=== PATIENT | male | born 1960 | race Two or more races ===

== ENCOUNTER 2021-06-08 01:10 | Inpatient (IN) | payer MEDICAID ==
[~2021-06-08] VITALS: Ht 167.6 cm; Wt 55.8 kg
[2021-06-08 02:34] LABS: BASOPHILS # (AUTO) 0.1 K/uL (0.0-0.2); BASOPHILS % (AUTO) 0.7 % (0.0-2.0); EOSINOPHILS % (AUTO) 3.1 % (0.0-6.0); HEMATOCRIT 27 % (39-51); HEMOGLOBIN 8.9 g/dL (13.5-17.5); LYMPHOCYTES # (AUTO) 1.4 K/uL (0.8-4.8); LYMPHOCYTES % (AUTO) 18.1 % (20.0-44.0); MEAN CORPUSCULAR HGB CONC 33 g/dl (31.0-36.0); MEAN CORPUSCULAR VOLUME 91 fL (80-96); MONOCYTES % (AUTO) 12.6 % (2.0-12.0); NEUTROPHILS % (AUTO) 65.5 % (43.0-81.0); PLATELET COUNT (AUTO) 127 K/uL (150-450); RED BLOOD CELL COUNT(AUTO) 2.95 MIL/uL (4.5-6.0); WHITE BLOOD COUNT (AUTO) 7.6 K/uL (4.3-11.0)
[2021-06-08 02:54] LABS: CALCIUM, SERUM 8.1 mg/dL (8.5-10.1); CREATININE 6.8 mg/dL (0.6-1.3)
[2021-06-08] MEDS ORDERED: CEFTRIAXONE 1GM BAG (ER ONLY) 50 ML IV ONE (03:50)
[2021-06-08] MEDS ORDERED: AZITHROMYCIN 500 MG VIAL ONE (03:50)
[2021-06-08] MEDS ORDERED: AZITHROMYCIN 500 MG in IV D5W 250 ML IV ONE (04:00)
[2021-06-08] MEDS ORDERED: CEFTRIAXONE 1 G in IV D5W 50 ML IV ONE (04:00)
[2021-06-08] MEDS ORDERED: HYDR100T27 PO (06:31)
[2021-06-08] MEDS ORDERED: ACET325T53 PO (06:31)
[2021-06-08] MEDS ORDERED: SITA25TA PO (06:31)
[2021-06-08] MEDS ORDERED: PANT40TA2 PO (06:31)
[2021-06-08] MEDS ORDERED: HYDR-4303 PO (06:31)
[2021-06-08] MEDS ORDERED: CLOP75TA15 PO (06:31)
[2021-06-08] MEDS ORDERED: ATOR80TA PO (06:31)
[2021-06-08] MEDS ORDERED: ALEN70TA80 PO (06:31)
[2021-06-08] MEDS ORDERED: GABA-532 PO (06:31)
[2021-06-08] MEDS ORDERED: ALPR1TAB7 PO (06:31)
[2021-06-08] MEDS ORDERED: ONDA4TAB5 PO (06:31)
[2021-06-08] MEDS ORDERED: NIFE-34 PO (06:31)
[2021-06-08] MEDS ORDERED: CLON0.1T PO (06:31)
[2021-06-08] MEDS ORDERED: FURO-145 PO (06:31)
[2021-06-08] MEDS ORDERED: INSU100V39 SQ (06:31)
[2021-06-08] MEDS ORDERED: METO25TA6 PO (06:31)
[2021-06-08] MEDS ORDERED: ASPI-1420 PO (06:31)
[2021-06-08] MEDS ORDERED: ACETAMINOPHEN 325 MG TABLET PO PRN (11:30)
[2021-06-08] MEDS ORDERED: HYDROCODONE/APAP 5/325MG TABLET PO PRN (11:30)
[2021-06-08] MEDS ORDERED: ALPRAZOLAM 1 MG TABLET PO PRN (11:30)
[2021-06-08] MEDS ORDERED: ONDANSETRON 4 MG TAB.RAPDIS PO PRN (12:00)
[2021-06-08] MEDS ORDERED: *INSULIN REGULAR(HUMULIN R)HUM 100 UNIT/ML VIAL SQ PRN (12:30)
[2021-06-08] MEDS ORDERED: DEXTROSE 50%-WATER 50 ML DISP.SYRIN IV PRN (12:30)
[2021-06-08] MEDS ORDERED: INSULIN REGULAR, HUMAN 100 UNIT/ML 3 ML VIAL SQ PRN (12:30)
[2021-06-08] MEDS: PIPERACILLIN /TAZOBACTAM 2.25 G in IV D5W 50 ML IV SCH ×2 (13:00→20:20)
[2021-06-08] MEDS: hydrALAZINE HCL 50 MG TABLET PO SCH ×2 (13:11→16:41)
[2021-06-08] MEDS: CLONIDINE HCL 0.1 MG TABLET PO SCH ×2 (13:12→21:28)
[2021-06-08] MEDS: GABAPENTIN 100 MG CAPSULE PO SCH ×2 (13:13→16:41)
[2021-06-08] MEDS: VANCOMYCIN 1 GM in IV D5W 250 ML IV ONE (14:00)
[2021-06-08] MEDS: METOPROLOL TARTRATE 25 MG TABLET PO SCH (16:41)
[2021-06-08] MEDS: BLOOD SUGAR DIAGNOSTIC 1 EACH STRIP VI SCH ×2 (16:41→21:29)
[2021-06-08] MEDS: NIFEdipine XL (30MG) 30 MG TAB PO SCH (16:41)
[2021-06-08 20:00] VITALS: BP 158/93
[2021-06-08] MEDS: ATORVASTATIN 40 MG TABLET PO SCH (21:28)
[2021-06-09] MEDS: PIPERACILLIN /TAZOBACTAM 2.25 G in IV D5W 50 ML IV SCH ×3 (04:36→20:35)
[2021-06-09 05:00] VITALS: BP 161/78
[2021-06-09] MEDS: CLONIDINE HCL 0.1 MG TABLET PO SCH ×3 (05:26→20:39)
[2021-06-09 05:56] LABS: BASOPHILS % (AUTO) 0.5 % (0.0-2.0); HEMATOCRIT 30 % (39-51); HEMOGLOBIN 9.7 g/dL (13.5-17.5); LYMPHOCYTES # (AUTO) 1.2 K/uL (0.8-4.8); MEAN CORPUSCULAR HGB CONC 33 g/dl (31.0-36.0); MEAN CORPUSCULAR VOLUME 91 fL (80-96); MONOCYTES # (AUTO) 0.7 K/uL (0.1-1.30); MONOCYTES % (AUTO) 7.2 % (2.0-12.0); NEUTROPHILS # (AUTO) 7.4 K/uL (1.8-8.9); NEUTROPHILS % (AUTO) 78.3 % (43.0-81.0); PLATELET COUNT (AUTO) 166 K/uL (150-450); RED BLOOD CELL COUNT(AUTO) 3.29 MIL/uL (4.5-6.0); WHITE BLOOD COUNT (AUTO) 9.4 K/uL (4.3-11.0)
[2021-06-09] MEDS ORDERED: VANCOMYCIN 500 MG in IV D5W 100 ML IV PRN (06:00)
[2021-06-09 07:06] LABS: CALCIUM, SERUM 8.4 mg/dL (8.5-10.1)
[2021-06-09] MEDS: BLOOD SUGAR DIAGNOSTIC 1 EACH STRIP VI SCH ×4 (07:30→21:18)
[2021-06-09 07:41] LABS: POTASSIUM 6.2 mmol/L (3.5-5.1)
[2021-06-09 07:42] LABS: CREATININE 8.5 mg/dL (0.6-1.3)
[2021-06-09 08:00] VITALS: BP 168/83
[2021-06-09] MEDS: PANTOPRAZOLE 40 MG TABLET.DR PO SCH (10:48)
[2021-06-09] MEDS: CLOPIDOGREL BISULFATE 75 MG TABLET PO SCH (10:48)
[2021-06-09] MEDS: FUROSEMIDE 20 MG TABLET PO SCH (10:48)
[2021-06-09] MEDS: ASPIRIN EC 81 MG TABLET.DR PO SCH (10:49)
[2021-06-09] MEDS: AZITHROMYCIN 250 MG TABLET PO SCH (10:49)
[2021-06-09] MEDS: LINAGLIPTIN 5 MG TABLET PO SCH (10:49)
[2021-06-09] MEDS: METOPROLOL TARTRATE 25 MG TABLET PO SCH ×2 (10:50→17:38)
[2021-06-09] MEDS: hydrALAZINE HCL 50 MG TABLET PO SCH ×3 (10:50→17:37)
[2021-06-09] MEDS: NIFEdipine XL (30MG) 30 MG TAB PO SCH ×2 (10:51→17:37)
[2021-06-09] MEDS: GABAPENTIN 100 MG CAPSULE PO SCH ×3 (10:53→17:37)
[2021-06-09] MEDS: GUAIFENESIN LA 600 MG TABLET.SA PO SCH ×2 (10:53→20:39)
[2021-06-09 16:00] VITALS: BP 153/79
[2021-06-09 20:00] VITALS: BP 140/69
[2021-06-09] MEDS: ATORVASTATIN 40 MG TABLET PO SCH (21:17)
[2021-06-10] MEDS: CLONIDINE HCL 0.1 MG TABLET PO SCH ×2 (05:00→12:52)
[2021-06-10] MEDS: PIPERACILLIN /TAZOBACTAM 2.25 G in IV D5W 50 ML IV SCH ×2 (05:52→14:43)
[2021-06-10] MEDS ORDERED: VANCOMYCIN 500 MG in IV D5W 100 ML IV PRN (06:00)
[2021-06-10] MEDS: BLOOD SUGAR DIAGNOSTIC 1 EACH STRIP VI SCH ×3 (07:21→17:15)
[2021-06-10 08:00] VITALS: BP 146/77
[2021-06-10 08:29] LABS: BASOPHILS # (AUTO) 0.1 K/uL (0.0-0.2); EOSINOPHILS % (AUTO) 6.6 % (0.0-6.0); HEMATOCRIT 26 % (39-51); HEMOGLOBIN 8.7 g/dL (13.5-17.5); LYMPHOCYTES % (AUTO) 14.1 % (20.0-44.0); MEAN CORPUSCULAR HGB CONC 34 g/dl (31.0-36.0); MEAN CORPUSCULAR VOLUME 90 fL (80-96); MONOCYTES # (AUTO) 0.6 K/uL (0.1-1.30); MONOCYTES % (AUTO) 8.1 % (2.0-12.0); NEUTROPHILS # (AUTO) 5.2 K/uL (1.8-8.9); NEUTROPHILS % (AUTO) 70.2 % (43.0-81.0); PLATELET COUNT (AUTO) 184 K/uL (150-450); RED BLOOD CELL COUNT(AUTO) 2.85 MIL/uL (4.5-6.0); WHITE BLOOD COUNT (AUTO) 7.4 K/uL (4.3-11.0)
[2021-06-10 09:19] LABS: CALCIUM, SERUM 8.1 mg/dL (8.5-10.1); POTASSIUM 6.1 mmol/L (3.5-5.1)
[2021-06-10 09:27] LABS: CREATININE 10.3 mg/dL (0.6-1.3)
[2021-06-10] MEDS: PANTOPRAZOLE 40 MG TABLET.DR PO SCH (09:27)
[2021-06-10] MEDS: AZITHROMYCIN 250 MG TABLET PO SCH (09:28)
[2021-06-10] MEDS: ASPIRIN EC 81 MG TABLET.DR PO SCH (09:28)
[2021-06-10] MEDS: GABAPENTIN 100 MG CAPSULE PO SCH ×3 (09:28→17:05)
[2021-06-10] MEDS: CLOPIDOGREL BISULFATE 75 MG TABLET PO SCH (09:29)
[2021-06-10] MEDS: METOPROLOL TARTRATE 25 MG TABLET PO SCH ×2 (09:29→17:04)
[2021-06-10] MEDS: LINAGLIPTIN 5 MG TABLET PO SCH (09:29)
[2021-06-10] MEDS: FUROSEMIDE 20 MG TABLET PO SCH (09:29)
[2021-06-10] MEDS: NIFEdipine XL (30MG) 30 MG TAB PO SCH ×2 (09:30→17:04)
[2021-06-10] MEDS: hydrALAZINE HCL 50 MG TABLET PO SCH ×3 (09:30→17:05)
[2021-06-10] MEDS: GUAIFENESIN LA 600 MG TABLET.SA PO SCH (09:31)
[2021-06-10] MEDS ORDERED: DOXY-326 PO (11:40)
[2021-06-10] MEDS ORDERED: GUAI600T53 PO (11:40)
[2021-06-10] MEDS ORDERED: EPOETIN ALFA (4000 UNIT) 4,000 UNIT/ML VIAL IV SCH (15:00)
[2021-06-10 16:00] VITALS: BP 151/80
[2021-06-10] MEDS ORDERED: VANCOMYCIN 1 GM in IV D5W 250 ML IV ONE (16:00)
[2021-06-10 17:05] VITALS: BP 151/80
== END 2021-06-10 18:20 | DRG 133 ==
LOC: ER 01:15 → TRANSITION 06:32 → MEDSG2 09:02
PROVIDERS: ADMIT Internal Medicine; ATTEND Internal Medicine
PROC: 5A1D70Z Performance of Urinary Filtration, Intermittent, Less than 6 Hours Per Day (ICD-10-PCS; principal; 2021-06-09)
DX: J96.00 Acute respiratory failure, unspecified whether with hypoxia or hypercapnia (principal); J15.9 Unspecified bacterial pneumonia; I12.0 Hypertensive chronic kidney disease with stage 5 chronic kidney disease or end stage renal disease; N18.6 End stage renal disease; D63.1 Anemia in chronic kidney disease; E11.22 Type 2 diabetes mellitus with diabetic chronic kidney disease; Z99.2 Dependence on renal dialysis; E78.5 Hyperlipidemia, unspecified; M89.9 Disorder of bone, unspecified
CPT/HCPCS: 36415; 71045-TC; 71250-TC; 80048-TC; 80202-TC; 82962-TC; 84484-TC; 85025-TC; 87081-TC; 90935-TC; G0378; J0456; J0696; J1815; J2543; J3370; J7050; J7060; U0003

== ENCOUNTER 2022-05-03 13:40 | Inpatient (IN) | payer MEDICAID ==
[~2022-05-03] VITALS: Ht 165.1 cm; Wt 58.1 kg
[~2022-05-03 13:40] MED LIST: ACET325T53 PO; ALEN70TA80 PO; ALPR1TAB7 PO; ASPI-1420 PO; ATOR80TA PO; CLON0.1T PO; CLOP75TA15 PO; DOXY-326 PO; FURO-145 PO; GABA-532 PO; GUAI600T53 PO; HYDR-4303 PO; HYDR100T27 PO; INSU100V39 SQ; METO25TA6 PO; NIFE-34 PO; ONDA4TAB5 PO; PANT40TA2 PO; SITA25TA PO
--- NOTE | 2022-05-03 13:40 | NUR ---
ALLAN RIVERA90 FROM [facility], STAFFED CALLED FOR ALTERED MENTAL STATUS, NAUSEA, AND VOMITING. PT MISSED HIS DIALYSIS YESTERDAY. ATTACHED TO MONITOR, SATTING AT 92% ON ROOM A IR A DESATTING WHILE FALING ASLEEP, 2L NASAL CANNULA PLACED. AWAITING MD ORDERS.
[2022-05-03 14:59] LABS: BASOPHILS % (AUTO) 0.7 % (0.0-2.0); HEMATOCRIT 41 % (39-51); HEMOGLOBIN 13.2 g/dL (13.5-17.5); LYMPHOCYTES # (AUTO) 1.2 K/uL (0.8-4.8); LYMPHOCYTES % (AUTO) 16.4 % (20.0-44.0); MEAN CORPUSCULAR HGB CONC 32 g/dl (31.0-36.0); MEAN CORPUSCULAR VOLUME 94 fL (80-96); MONOCYTES # (AUTO) 0.8 K/uL (0.1-1.30); MONOCYTES % (AUTO) 11.5 % (2.0-12.0); NEUTROPHILS # (AUTO) 4.4 K/uL (1.8-8.9); NEUTROPHILS % (AUTO) 62.4 % (43.0-81.0); PLATELET COUNT (AUTO) 218 K/uL (150-450); RED BLOOD CELL COUNT(AUTO) 4.34 MIL/uL (4.5-6.0); WHITE BLOOD COUNT (AUTO) 7.1 K/uL (4.3-11.0)
[2022-05-03 15:10] LABS: CALCIUM, SERUM 9.3 mg/dL (8.5-10.1); CARBON DIOXIDE 20 mmol/L (21-32); CHLORIDE 95 mmol/L (98-107); GLUCOSE 141 mg/dL (74-106); POTASSIUM 5.9 mmol/L (3.5-5.1); SODIUM SERUM 132 mmol/L (136-145)
[2022-05-03 15:16] LABS: CREATININE 10.9 mg/dL (0.6-1.3); UREA NITROGEN, BLOOD 118 mg/dL (7-18)
[2022-05-03 15:17] LABS: ALANINE AMINOTRANSFERASE 24 U/L (12-78); ALBUMIN 2.9 g/dL (3.4-5.0); ALCOHOL, BLOOD < 3 mg/dL (0-0); ALKALINE PHOSPHATASE 158 U/L (46-116); ASPARTATE AMINOTRANSFERASE 14 U/L (15-37); BILIRUBIN,DIRECT 0.1 mg/dL (0.0-0.2); BILIRUBIN,TOTAL 0.3 mg/dL (0.2-1.0); TOTAL PROTEIN, SERUM 7.4 g/dL (6.4-8.2)
[2022-05-03 15:50] LABS: LIPASE 348 U/L (73-393)
--- NOTE | 2022-05-03 15:53 | NUR ---
COVID TEST COLLECTED AND SENT
[2022-05-03] MEDS ORDERED: CALCIUM CHLORIDE 1,000 MG/10 ML DISP.SYRIN IV ONE (16:00)
[2022-05-03] MEDS ORDERED: INSULIN REGULAR, HUMAN 100 UNIT/ML 10 ML VIAL IV ONE (16:00)
[2022-05-03] MEDS ORDERED: DEXTROSE 50%-WATER 50 ML DISP.SYRIN IV ONE (16:00)
--- NOTE | 2022-05-03 16:00 | NUR ---
MOVE SHEET SUBMITTED
[2022-05-03] MEDS ORDERED: DEXTROSE 50%-WATER 50 ML DISP.SYRIN ONE (16:01)
[2022-05-03] MEDS ORDERED: CALCIUM CHLORIDE 1,000 MG/10 ML DISP.SYRIN ONE (16:01)
--- NOTE | 2022-05-03 16:16 | NUR ---
URINE COLLECTED AND SENT
[2022-05-03 16:53] LABS: BILIRUBIN,URINE NEGATIVE (NEGATIVE); COLOR,URINE YELLOW (YELLOW); LEUKOCYTE ESTERASE ,URINE NEGATIVE (NEGATIVE); NITRITE, URINE NEGATIVE (NEGATIVE); PH,URINE 7.5 (5.0-8.0); PROTEIN,URINE 2+ mg/dl (NEGATIVE); UGLUCOSE TRACE mg/dL (NEGATIVE); UROBILINOGEN,URINE 0.2 EU/dL (0.2)
--- NOTE | 2022-05-03 17:30 | NUR ---
Nicole jones in EDM - 05/03/22 at [address] MARKHAM AT BEDSIDE FOR CONSCIOUS SEDATION 60MG OF PROPOFOL GIVEN, SHOULDER POPPED BACK IN AT 1731, X RAY WAS CALLED. PT BECASE A&OX4 AT 1736.
[2022-05-03 18:06] LABS: BACTERIA,URINE None seen /HPF (None Seen); SQUAMOUS EPITHELIAL CELL,UR 0-2 /HPF (None Seen); WBC,URINE 0-2 /HPF (0-3)
--- NOTE | 2022-05-03 19:40 | NUR ---
CALLED CHANTELLE LA SISTER DPTON RECIEVED VERBAL CONSENT FOR DIALYSIS WITH 2 RN's; VERBALIZED UNDERSTANDING
--- NOTE | 2022-05-03 19:42 | NUR ---
HD RN AT PT'S BEDSIDE
--- NOTE | 2022-05-03 19:55 | NUR ---
RCW HD CATHETER PATENT AND INTACT.
--- NOTE | 2022-05-03 22:59 | NUR ---
HD COMPLETED BY SHEET METAL WORKER LINO. OUTPUT 2L. VSS. PT TOLERATED HD WELL. BP 135/ 72 HR 67 RR 20 TEMP 98.0 SATTING 97% ON 2LPM N/C. RR EVEN NONLABORED HD TO RCW; PATENT AND INTACT. NO ACTIVE BLEEDING
[2022-05-04] VITALS (44 sets, daily range): BP systolic 91–220; BP diastolic 50–125
--- NOTE | 2022-05-04 01:17 | NUR ---
BUSINESS REPRESENTATIVE NOTE RECEIVED REPORT FROM ER, SAMARA CASAS. PATIENT IS ON 3 LPM VIA NC, O2 SAT IS 97%. LAST VITAL SIGNS WERE TAKEN THE FOLLOWING: BP 135/72, HR 59 RR 16. IV ACCESS IS ON R FA, #20 G. PATIENT FINISHED HEMO DIALYSIS, AND OUTPUT IS 2000 ML.
--- NOTE | 2022-05-04 01:18 | NUR ---
REPORT GIVEN TO 3W RN FOR LISA
--- NOTE | 2022-05-04 02:00 | NUR ---
CRATE BUILDER NOTE PATIENT ARRIVED IN THE UNIT IN A GURNEY. PATIENT IS ALERT, A O X 1. PATIENT IS CONFUSED AND YELL OUT ALOUD CONSTANTLY. HE IS ON 4 LPM OXYGEN, AND THE O2 SAT IS 97%. IV ACCESS IS AT R FA, #20G, SL. UPON ARRIVING, VITAL SIGNS WERE TAKEN AND BEING DOCUMENTED IN THE COMPUTER SYSTEM BY DUNG RO. PATIENT HAS ELEVATED TEMPERATURE OF 99.7, REMOVED THE BLANKET AND PUT 3 PACK OF ICE PACK ON THE PATIENT, ONE IS UNDER HIS RIGHT AXILLARY, ONE IS UNDER HIS LEFT AXILLARY, AND ANOTHER ONE IS ON THE CHEST. PATIENT HAS SOME SKIN ISSUES, PICTURES WERE TAKEN AND PUT IN THE MEDICAL CHART. IV ACCESS IS PATENT AND INTACT. IJ PERMCATH IS AT HIS RIGHT CHEST. SAFETY MEASURE IN PLACED: BED IN LOWEST POSITION AND LOCKED; CALL ROSS IN REACH; BED ALARM IS SET. WILL CONTINUE MONITORING PATIENT'S CONDITION AND PROVIDE THE CARE HE NEEDS.
--- NOTE | 2022-05-04 02:07 | NUR ---
PT TRANSFERRED TO 308-1 VIA ACLS PROTOCOL. VSS. PT TOLERATED TRANSFER WELL.
[2022-05-04] MEDS ORDERED: INSULIN REGULAR, HUMAN 100 UNIT/ML 3 ML VIAL SQ PRN (03:00)
[2022-05-04] MEDS ORDERED: DEXTROSE 50%-WATER 50 ML DISP.SYRIN IV PRN ×2 (03:00→12:30)
[2022-05-04 06:01] LABS: BASOPHILS % (AUTO) 0.2 % (0.0-2.0); HEMATOCRIT 39 % (39-51); HEMOGLOBIN 12.6 g/dL (13.5-17.5); LYMPHOCYTES # (AUTO) 0.2 K/uL (0.8-4.8); MEAN CORPUSCULAR HGB CONC 33 g/dl (31.0-36.0); MEAN CORPUSCULAR VOLUME 93 fL (80-96); MONOCYTES # (AUTO) 0.7 K/uL (0.1-1.30); MONOCYTES % (AUTO) 6.6 % (2.0-12.0); NEUTROPHILS # (AUTO) 10.2 K/uL (1.8-8.9); NEUTROPHILS % (AUTO) 91.2 % (43.0-81.0); PLATELET COUNT (AUTO) 202 K/uL (150-450); RED BLOOD CELL COUNT(AUTO) 4.19 MIL/uL (4.5-6.0); WHITE BLOOD COUNT (AUTO) 11.1 K/uL (4.3-11.0)
[2022-05-04 06:36] LABS: CALCIUM, SERUM 9.1 mg/dL (8.5-10.1); POTASSIUM 5.1 mmol/L (3.5-5.1)
--- NOTE | 2022-05-04 07:00 | NUR ---
HOUSEKEEPING DIRECTOR OPENING NOTES RECEIVED PATIENT AWAKE IN BED. A/Ox1, EPISODES OF CONFUSION. ON 4L OF O2 VIA NC. NO S/S OF RESPIRATORY DISTRESS. ON TELE MONITORING SHOWING SR HR 90. NO COMPLAINT OF CHEST PAIN OR DISCOMFORT. IV ACCESS R FA #20 SL. INTACT AND PATENT. PATIENT HAS RCW CATH, DRESSING IN PLACE. PATIENT INCONTINENT. SKIN ISSUES: R CHEST WOUND, SACRAL DTI, NATHALIA BRUISES. PATIENT IS YELLING OCCASIONALLY, UNABLE TO SAY WHAT IS WRONG. SAFETY MEASURES IN PLACE: BED LOCKED AND IN LOWEST POSITION, HOB ELEVATED, SIDE RAILS UPx3, CALL LIGHT WITHIN REACH. WILL CONTINUE TO MONITOR.
[2022-05-04 07:09] LABS: CREATININE 7.5 mg/dL (0.6-1.3)
[2022-05-04] MEDS ORDERED: ALPRAZOLAM 1 MG TABLET PO PRN (07:30)
[2022-05-04] MEDS ORDERED: ONDANSETRON 4 MG TAB.RAPDIS PO PRN (07:30)
[2022-05-04] MEDS ORDERED: HYDROCODONE/APAP 5/325MG TABLET PO PRN (07:30)
[2022-05-04] MEDS: PANTOPRAZOLE 40 MG TABLET.DR PO SCH (07:30)
[2022-05-04] MEDS ORDERED: CLONIDINE HCL 0.1 MG TABLET PO SCH (07:30)
--- NOTE | 2022-05-04 07:35 | NUR ---
DOORMAKER CLOSING NOTE PATIENT IS IN BED SLEEPING. PATIENT IS CONFUSED AND YELL OUT ALOUD WHEN HE WAKES UP. HE IS ON 4 LPM OXYGEN, AND THE O2 SAT IS 97%. IV ACCESS IS AT R FA, #20G, SL. PATENT AND INTACT. PATIENT HAS ELEVATED TEMPERATURE OF 99.7, ONE HOUR AFTER APPLYING THE ICE PACKS, PATIENT'S BODY TEMPERATURE IS 98.6 F. IV ACCESS IS PATENT AND INTACT. IJ PERMCATH IS AT HIS RIGHT CHEST. DRESSING IS DRY AND CLEAN. AFETY MEASURE IN PLACED: BED IN LOWEST POSITION AND LOCKED; CALL ROSS IN REACH; BED ALARM IS SET. ENDORSED THE DAY SHIFT NURSE TO FOLLOW UP WITH PATIENT'S DIET SINCE THE PATIENT HAS DM TYPE II.
--- NOTE | 2022-05-04 07:45 | NUR ---
RN NOTES PATIENT BEGAN TO HAVE TREMORS @0730, DR. MOONEY AT BESIDE, ORDERED IV KEPPRA. HOWEVER, TREMORS CONTINUED, DR. MOONEY THEN ORDERED ATIVAN 1 MG IV PUSH, ADMINISTERED. PATIENT STILL SHOWING SINUS RHYTHM HR 89 ON TELE MONITORING. UNABLE TO GET ACCURATE BP AT THIS TIME, PATIENT IS MOVING TOO MUCH. PATIENT PENDING TRANSFER TO ICU.
[2022-05-04] MEDS: BLOOD SUGAR DIAGNOSTIC 1 EACH STRIP IN SCH ×4 (07:47→23:39)
[2022-05-04] MEDS ORDERED: LEVETIRACETAM (500MG) 500 MG in IV NS 0.9% 100 ML IV SCH (08:00)
[2022-05-04] MEDS ORDERED: LORAZEPAM INJ 2 MG/ML VIAL IV ONE (08:10)
--- NOTE | 2022-05-04 08:10 | NUR ---
RN NOTES PATIENT TRANSFERRED TO ICU BED 259, BEDSIDE REPORT GIVEN TO SAMARA PAREDES, PATIENT NO LONGER HAVING TREMORS.
[2022-05-04] MEDS ORDERED: LEVETIRACETAM (500MG) 500 MG in IV NS 0.9% 100 ML IV ONE (08:30)
[2022-05-04] MEDS ORDERED: LEVETIRACETAM (500MG) 1,500 MG in IV NS 0.9% 100 ML IV ONE (08:30)
[2022-05-04] MEDS: GUAIFENESIN LA 600 MG TABLET.SA PO SCH ×2 (09:00→20:45)
[2022-05-04] MEDS: hydrALAZINE HCL 50 MG TABLET PO SCH ×3 (09:00→15:48)
[2022-05-04] MEDS: CLOPIDOGREL BISULFATE 75 MG TABLET PO SCH (09:00)
[2022-05-04] MEDS: FUROSEMIDE 20 MG TABLET PO SCH (09:00)
[2022-05-04] MEDS: GABAPENTIN 100 MG CAPSULE PO SCH ×3 (09:00→15:49)
[2022-05-04] MEDS: NIFEdipine XL (30MG) 30 MG TAB PO SCH ×2 (09:00→15:49)
[2022-05-04] MEDS: ASPIRIN EC 81 MG TABLET.DR PO SCH (09:00)
[2022-05-04] MEDS: LINAGLIPTIN 5 MG TABLET PO SCH (09:00)
[2022-05-04] MEDS: METOPROLOL TARTRATE 25 MG TABLET PO SCH ×2 (09:00→15:48)
--- NOTE | 2022-05-04 09:00 | NUR ---
RN NOTES PATIENT TRANSFERRED FROM AT THIS TIME AMS, SEIZURE. GET BEDSIDE REPORT, PATIENT CONFUSED, NO SOB NOTES O2-2LNC, FIO2- 96%, HR-83 SINUS, R-13, BP 179/96, T-98.6f. NO SEIZURE NOTED AT THIS TIME GIVEN ARIVAN VIA 3 WEST VIA RN, IV ACCESS ON RFA INTACT STARTED TKO @10ML/HR. SKIN ASSESSMENT DONE NOTED PATIENT HAS REDNESS PERINEAL AREA DTI, RECTAL BLEEDING, AMPUTATED RIGHT 5TH PHALANGE, LEFT FOOT BID TOE, AND 3-RT PHALANGE WELL. SIDE RAILS PADDED, BED ALARM ON, , CALL LIGHT WITHIN TO REACH. GET CALL FROM PHARMACY FOR VERIFICATION OF KEPPRA DOSE. WILL FOLLOW UP.
[2022-05-04] MEDS: CLONIDINE HCL 0.2MG/24H PTWK 1 EA PATCH TD SCH (09:37)
[2022-05-04] MEDS ORDERED: VANCOMYCIN 1 GM in IV D5W 250 ML IV ONE (10:00)
[2022-05-04] MEDS: IV NS 0.9% 250 ML IV PRN (10:00)
--- NOTE | 2022-05-04 10:00 | NUR ---
REPORT RECEIVED FROM LENA PASCUAL. ASSUMED CARE OF PATIENT AT THIS TIME. LABS AND ORDERS REVIEWED DURING REPORT
[2022-05-04] MEDS: LEVETIRACETAM (500MG) 1,000 MG in IV NS 0.9% 100 ML IV SCH ×3 (10:50→21:50)
--- NOTE | 2022-05-04 11:23 | NUR ---
PT IS NOT ALERT ENOUGH TO TAKE PO MEDS AT THIS TIME. PT MAKES JERKING MOVEMENTS, YELLS OUT "HEY" BUT DOES NOT RESPOND TO VERBAL OR TACTILE STIMULI, DOES NOT FOLLOW COMMANDS. 1 SMALL ICE CHIP PLACED ON LIP TO SEE IF PATIENT WOULD ATTEMPT TO EAT THE ICE CHIP, HE DID NOT. PT IS NPO FOR NOW. DR. MOONEY NOTIFIED OF PATIENTS BP OF 216/94 WITH MOSTLY PO MEDS DUE.
[2022-05-04] MEDS: hydrALAZINE HCL IV 20 MG VIAL IV PRN (11:52)
[2022-05-04] MEDS ORDERED: LABETALOL 20 MG/4 ML VIAL IV PRN (12:00)
[2022-05-04] MEDS: PIPERACILLIN /TAZOBACTAM 2.25 G in IV D5W 50 ML IV SCH ×2 (12:12→16:04)
[2022-05-04] MEDS: LABETALOL 20 MG/4 ML VIAL IV PRN (14:50)
[2022-05-04] MEDS: LORAZEPAM INJ 2 MG/ML VIAL IV PRN ×2 (15:38→22:34)
[2022-05-04] MEDS: INSULIN REGULAR, HUMAN 100 UNIT/ML 3 ML VIAL SQ PRN (18:36)
--- NOTE | 2022-05-04 19:15 | NUR ---
DIET CLERK PT RECEIVING HD AT THIS TIME
[2022-05-04] MEDS: ATORVASTATIN 40 MG TABLET PO SCH (21:50)
[2022-05-04] MEDS: Z GUARD REMEDY 4 OZ OINT TP SCH (21:51)
[2022-05-05] VITALS (40 sets, daily range): BP systolic 101–240; BP diastolic 49–192
[2022-05-05] MEDS: hydrALAZINE HCL IV 20 MG VIAL IV PRN ×4 (02:59→23:15)
[2022-05-05 05:21] LABS: BASOPHILS % (AUTO) 0.4 % (0.0-2.0); EOSINOPHILS % (AUTO) 0.1 % (0.0-6.0); HEMATOCRIT 44 % (39-51); HEMOGLOBIN 14.4 g/dL (13.5-17.5); LYMPHOCYTES # (AUTO) 0.4 K/uL (0.8-4.8); MEAN CORPUSCULAR HGB CONC 33 g/dl (31.0-36.0); MEAN CORPUSCULAR VOLUME 92 fL (80-96); MONOCYTES # (AUTO) 0.9 K/uL (0.1-1.30); MONOCYTES % (AUTO) 6.6 % (2.0-12.0); NEUTROPHILS # (AUTO) 11.8 K/uL (1.8-8.9); NEUTROPHILS % (AUTO) 89.9 % (43.0-81.0); PLATELET COUNT (AUTO) 194 K/uL (150-450); RED BLOOD CELL COUNT(AUTO) 4.78 MIL/uL (4.5-6.0); WHITE BLOOD COUNT (AUTO) 13.2 K/uL (4.3-11.0)
[2022-05-05 05:49] LABS: CALCIUM, SERUM 9.7 mg/dL (8.5-10.1); CREATININE 5.6 mg/dL (0.6-1.3); POTASSIUM 4.8 mmol/L (3.5-5.1)
[2022-05-05] MEDS: BLOOD SUGAR DIAGNOSTIC 1 EACH STRIP IN SCH ×3 (06:14→18:52)
[2022-05-05] MEDS: INSULIN REGULAR, HUMAN 100 UNIT/ML 3 ML VIAL SQ PRN (06:28)
[2022-05-05] MEDS: PANTOPRAZOLE 40 MG TABLET.DR PO SCH (07:30)
[2022-05-05] MEDS: PIPERACILLIN /TAZOBACTAM 2.25 G in IV D5W 50 ML IV SCH ×4 (07:53→15:29)
[2022-05-05] MEDS: LORAZEPAM INJ 2 MG/ML VIAL IV PRN ×3 (07:53→22:33)
[2022-05-05] MEDS: hydrALAZINE HCL 50 MG TABLET PO SCH ×3 (08:30→17:00)
[2022-05-05] MEDS ORDERED: VANCOMYCIN 500 MG in IV D5W 100 ML IV PRN (08:30)
[2022-05-05] MEDS: CLOPIDOGREL BISULFATE 75 MG TABLET PO SCH (08:31)
[2022-05-05] MEDS: ASPIRIN EC 81 MG TABLET.DR PO SCH (08:31)
[2022-05-05] MEDS: FUROSEMIDE 20 MG TABLET PO SCH (08:31)
[2022-05-05] MEDS: NIFEdipine XL (30MG) 30 MG TAB PO SCH ×2 (08:31→17:00)
[2022-05-05] MEDS: GUAIFENESIN LA 600 MG TABLET.SA PO SCH ×2 (08:31→20:28)
[2022-05-05] MEDS: METOPROLOL TARTRATE 25 MG TABLET PO SCH ×2 (08:31→17:00)
[2022-05-05] MEDS: GABAPENTIN 100 MG CAPSULE PO SCH ×3 (08:31→17:00)
[2022-05-05] MEDS: LINAGLIPTIN 5 MG TABLET PO SCH (08:32)
[2022-05-05] MEDS: LEVETIRACETAM (500MG) 1,000 MG in IV NS 0.9% 100 ML IV SCH ×2 (09:37→20:30)
[2022-05-05] MEDS: Z GUARD REMEDY 4 OZ OINT TP SCH ×2 (09:38→22:18)
[2022-05-05] MEDS: IV NS 0.9% 250 ML IV PRN (14:00)
[2022-05-05] MEDS: LABETALOL 20 MG/4 ML VIAL IV PRN (15:29)
--- NOTE | 2022-05-05 19:30 | NUR ---
PT'S BLOOD PRESSURE TODAY WAS NOT ALWAYS ACCURATE BECAUSE PT MOVES HIS ARM AND TIGHTENS HIS ARM MUSCLES EVERY TIME THE BP CUFF GOES OFF. RN ATTEMPTED NUMEROUS TIMES TO HOLD PATIENTS ARM STILL TO GET AN ACCURATE BP WITHOUT SUCCESS MOST OF THE TIME. ATIVAN GIVEN PRN ORDERED BUT DID NOT RELAX PATIENT. PATIENT HAD 3 BM'S THIS SHIFT. PT CHECKED ON HOURLY AND PRN BY NURSING STAFF.
[2022-05-05] MEDS ORDERED: AMIODARONE 450 MG in IV D5W 241 ML IV PRN (21:30)
[2022-05-05] MEDS ORDERED: AMIODARONE 150 MG in IV D5W 100 ML IV ONE (21:30)
[2022-05-05] MEDS ORDERED: AMIODARONE 150 MG/3 ML VIAL IV ONE (21:32)
[2022-05-05] MEDS: ATORVASTATIN 40 MG TABLET PO SCH (22:00)
--- NOTE | 2022-05-05 22:00 | NUR ---
STONE DRESSER PT CONVERTED TO AFIB HR 140s; EKG DONE; BOSS DYER NOTIFIED WITH ORDERS FOR AMIODARONE DRIP AND CXR. PT ALSO NOTED WITH EPISODES OF DESATURATION O2 INCREASED TO 4L VIA NC.
[2022-05-06] VITALS (42 sets, daily range): BP systolic 87–229; BP diastolic 44–141
[2022-05-06] MEDS: PIPERACILLIN /TAZOBACTAM 2.25 G in IV D5W 50 ML IV SCH ×4 (00:31→23:59)
[2022-05-06] MEDS: BLOOD SUGAR DIAGNOSTIC 1 EACH STRIP IN SCH ×5 (00:31→23:59)
[2022-05-06] MEDS: INSULIN REGULAR, HUMAN 100 UNIT/ML 3 ML VIAL SQ PRN ×2 (00:32→18:29)
[2022-05-06 05:11] LABS: BASOPHILS % (AUTO) 0.3 % (0.0-2.0); EOSINOPHILS % (AUTO) 0.4 % (0.0-6.0); HEMATOCRIT 42 % (39-51); HEMOGLOBIN 13.5 g/dL (13.5-17.5); LYMPHOCYTES # (AUTO) 0.8 K/uL (0.8-4.8); LYMPHOCYTES % (AUTO) 5.8 % (20.0-44.0); MEAN CORPUSCULAR HGB CONC 32 g/dl (31.0-36.0); MEAN CORPUSCULAR VOLUME 94 fL (80-96); MONOCYTES # (AUTO) 1.3 K/uL (0.1-1.30); NEUTROPHILS # (AUTO) 11.1 K/uL (1.8-8.9); NEUTROPHILS % (AUTO) 83.5 % (43.0-81.0); PLATELET COUNT (AUTO) 234 K/uL (150-450); RED BLOOD CELL COUNT(AUTO) 4.53 MIL/uL (4.5-6.0); WHITE BLOOD COUNT (AUTO) 13.3 K/uL (4.3-11.0)
[2022-05-06 05:24] LABS: POTASSIUM 5.2 mmol/L (3.5-5.1)
--- NOTE | 2022-05-06 05:31 | NUR ---
INSURANCE MANAGER PT NOTED WITH MOMENTS OF RESTLESS WITH INCREASED BP AND HR WELL MOMENTS OF LETHARGY.
[2022-05-06 05:33] LABS: CREATININE 7.5 mg/dL (0.6-1.3)
[2022-05-06] MEDS: PANTOPRAZOLE 40 MG TABLET.DR PO SCH (07:30)
[2022-05-06 07:52] LABS: ABG BASE EXCESS -8.2 mmol/L; ABG OXYGEN SATURATION 98.5 % (92.0-98.5); ABG PCO2 39.8 mmHg (35.0-45.0); ABG PH 7.275 (7.350-7.450); ABG PO2 140.6 mmHg (75.0-100.0); AaDO2 77.1 mmHg; COHb 1.3 % (0.5-1.5); MetHb 0.4 % (0.0-1.5); O2Hb 96.8 % (94.0-97.0); SITE, ABG Right Radial; VENT MODE, BG 4L NC
[2022-05-06] MEDS: LORAZEPAM INJ 2 MG/ML VIAL IV PRN (08:50)
[2022-05-06] MEDS: GUAIFENESIN LA 600 MG TABLET.SA PO SCH ×2 (09:00→21:00)
[2022-05-06] MEDS: LABETALOL 20 MG/4 ML VIAL IV PRN (09:09)
[2022-05-06] MEDS ORDERED: SODIUM BICARBONATE SYR 50 MEQ/50 ML DISP.SYRIN IV ONE (10:00)
[2022-05-06] MEDS: LEVETIRACETAM (500MG) 1,000 MG in IV NS 0.9% 100 ML IV SCH (10:59)
[2022-05-06] MEDS ORDERED: PHARMACY TO CHANGE PO MEDS TO GT/NG XX PRN (11:00)
[2022-05-06] MEDS ORDERED: HYDROCODONE/APAP 5/325MG TABLET NG PRN (11:01)
[2022-05-06] MEDS ORDERED: ONDANSETRON 4 MG TAB.RAPDIS NG PRN (11:01)
[2022-05-06] MEDS: AMIODARONE HCL 200 MG TABLET NG SCH ×3 (11:09→18:01)
[2022-05-06] MEDS: LEVETIRACETAM SOL (5 ML) 100 MG/ML UDC NG SCH ×2 (11:10→21:14)
[2022-05-06] MEDS: Z GUARD REMEDY 4 OZ OINT TP SCH ×2 (11:15→21:15)
[2022-05-06] MEDS: NIFEdipine XL (30MG) 30 MG TAB PO SCH ×3 (11:15→16:59)
[2022-05-06] MEDS: FUROSEMIDE 20 MG TABLET NG SCH (11:23)
[2022-05-06] MEDS: LINAGLIPTIN 5 MG TABLET NG SCH (11:25)
[2022-05-06] MEDS: METOPROLOL TARTRATE 25 MG TABLET NG SCH ×2 (11:26→18:00)
[2022-05-06] MEDS: hydrALAZINE HCL 50 MG TABLET NG SCH ×3 (11:27→18:00)
[2022-05-06] MEDS: GABAPENTIN 100 MG CAPSULE NG SCH ×3 (11:28→18:01)
[2022-05-06] MEDS: CLOPIDOGREL BISULFATE 75 MG TABLET NG SCH (11:28)
[2022-05-06] MEDS: ASPIRIN 81 MG TAB.CHEW NG SCH (11:30)
--- NOTE | 2022-05-06 11:30 | NUR ---
AM MEDS GIVEN LATE D/T NG TUBE PLACEMENT. AMIODARONE PER NG IS TO START AT 1300 PER . KEPPRA IV DOSE GIVEN THIS AM, NG DOSE TO START TONIGHT.
[2022-05-06] MEDS: PANTOPRAZOLE 40 MG/PACK PACK NG SCH (11:33)
--- NOTE | 2022-05-06 11:47 | NUR ---
PT PATIENTS SISTER CHANTELLE CANCHOLA, PT HAS AN IMPORTANT SOCIAL SECURITY MEETING TOMORROW AND WILL NEED SOME KIND OF NOTE THAT HE IS IN THE HOSPITAL. PER CHANTELLE, SHE IS PT'S DECISION MAKER. Addendum: 05/06/22 at 1237 by MIGUELITO VILLARREAL RN ROLO LA
--- NOTE | 2022-05-06 12:49 | NUR ---
HD STARTING AT THIS TIME, ALL MEDS WILL BE HELD UNTIL AFTER HD.
[2022-05-06] MEDS ORDERED: AMIODARONE HCL 200 MG TABLET NG SCH (13:00)
[2022-05-06] MEDS: IV NS 0.9% 250 ML IV PRN (16:58)
--- NOTE | 2022-05-06 17:28 | NUR ---
1700 DOSE OF PROCARDIA HELD BECAUSE MED CAN NOT BE CRUSHED
[2022-05-06] MEDS ORDERED: LEVETIRACETAM SOL (5 ML) 100 MG/ML UDC NG SCH (21:00)
[2022-05-06] MEDS: ATORVASTATIN 40 MG TABLET NG SCH (21:14)
[2022-05-07] VITALS (18 sets, daily range): BP systolic 140–181; BP diastolic 73–96
[2022-05-07] MEDS: hydrALAZINE HCL IV 20 MG VIAL IV PRN (00:37)
--- NOTE | 2022-05-07 02:00 | NUR ---
BOLOGNA MAKER SUCTIONED LARGE AMOUNT OF BROWN THICK SPUTUM
--- NOTE | 2022-05-07 03:40 | NUR ---
BAG SHAKER PT ALERT AND ABLE TO VERBALIZE HIS NAME AT THIS TIME
[2022-05-07 04:38] LABS: BASOPHILS % (AUTO) 0.1 % (0.0-2.0); EOSINOPHILS % (AUTO) 1.7 % (0.0-6.0); HEMATOCRIT 42 % (39-51); HEMOGLOBIN 13.7 g/dL (13.5-17.5); LYMPHOCYTES # (AUTO) 0.8 K/uL (0.8-4.8); LYMPHOCYTES % (AUTO) 5.4 % (20.0-44.0); MEAN CORPUSCULAR HGB CONC 33 g/dl (31.0-36.0); MEAN CORPUSCULAR VOLUME 92 fL (80-96); MONOCYTES # (AUTO) 1.2 K/uL (0.1-1.30); MONOCYTES % (AUTO) 8.4 % (2.0-12.0); NEUTROPHILS # (AUTO) 12.4 K/uL (1.8-8.9); NEUTROPHILS % (AUTO) 84.4 % (43.0-81.0); PLATELET COUNT (AUTO) 280 K/uL (150-450); WHITE BLOOD COUNT (AUTO) 14.7 K/uL (4.3-11.0)
[2022-05-07 04:52] LABS: CALCIUM, SERUM 9.9 mg/dL (8.5-10.1); CREATININE 6.1 mg/dL (0.6-1.3); POTASSIUM 5.2 mmol/L (3.5-5.1)
[2022-05-07] MEDS: BLOOD SUGAR DIAGNOSTIC 1 EACH STRIP IN SCH ×3 (05:14→18:30)
--- NOTE | 2022-05-07 05:20 | NUR ---
SWIMMING POOL SERVICER PT WAKING UP MORE; INCREASED RESTLESSNESS. ATTEMPTING TO PULL NG TUBE.
--- NOTE | 2022-05-07 07:30 | NUR ---
RN OPENING NOTE PT OBSERVED IN BED WITH HOB >30 DEGREES. PT IS 5L O2 VIA NC TOLERATING WELL WITH NO SIGNS OF DISTRESS OR LABORED BREATHING O2 SAT 100% NGTUBE IS IN PLACE LEFT NARE WITH POSITIVE PLACEMENT NO TF AT THIS TIME AND NPO EXCEPT FOR MEDS. PT IS ON HD AND IS ANURIC. IV ACCESS R CHEST PERMACATH AND R FA 20G. BED IS LOCKED IN LOWEST POSITION X2 BED RAILS UP AND ALL HOSPITAL SAFETY MEASURES ARE IN PLACE. WILL CONTINUE TO MONITOR THIS SHIFT.
--- NOTE | 2022-05-07 07:58 | NUR ---
WOUND CARE CONSULT: PT PRESENTS WITH SACRAL INTACT DEEP TISSUE INJURY, PERIANAL AREA REDNESS, PRESENT ON ADMISSION. PT ALSO NOTED TO HAVE RT ELBOW SKIN TEAR. PT IS VERY THIN AND BONY. DISCUSSED SKIN PROTECTION WITH NURSING STAFF. IN AGREEMENT WITH PLAN OF CARE. Addendum: 05/07/22 at 0759 by ALONDRA SANCHEZ WNDNU Amended: Links added.
[2022-05-07] MEDS: PIPERACILLIN /TAZOBACTAM 2.25 G in IV D5W 50 ML IV SCH ×2 (08:42→16:07)
[2022-05-07] MEDS: PANTOPRAZOLE 40 MG/PACK PACK NG SCH (08:43)
[2022-05-07] MEDS: LEVETIRACETAM SOL (5 ML) 100 MG/ML UDC NG SCH ×2 (08:43→21:36)
[2022-05-07] MEDS: GABAPENTIN 100 MG CAPSULE NG SCH ×3 (08:43→17:43)
[2022-05-07] MEDS: LINAGLIPTIN 5 MG TABLET NG SCH (08:44)
[2022-05-07] MEDS: ASPIRIN 81 MG TAB.CHEW NG SCH ×2 (08:44→09:00)
[2022-05-07] MEDS: CLOPIDOGREL BISULFATE 75 MG TABLET NG SCH (08:45)
[2022-05-07] MEDS: METOPROLOL TARTRATE 25 MG TABLET NG SCH ×2 (08:45→17:44)
[2022-05-07] MEDS: AMIODARONE HCL 200 MG TABLET NG SCH ×3 (08:46→17:43)
[2022-05-07] MEDS: hydrALAZINE HCL 50 MG TABLET NG SCH ×3 (08:47→17:43)
[2022-05-07] MEDS: NIFEdipine XL (30MG) 30 MG TAB PO SCH ×2 (08:48→09:00)
[2022-05-07] MEDS: FUROSEMIDE 20 MG TABLET NG SCH (08:49)
[2022-05-07] MEDS ORDERED: ASPIRIN 81 MG TAB.CHEW NG SCH (09:00)
[2022-05-07] MEDS: Z GUARD REMEDY 4 OZ OINT TP SCH ×2 (09:03→21:37)
[2022-05-07] MEDS: GUAIFENESIN 300 MG/15 ML UDC NG SCH ×2 (09:13→21:36)
--- NOTE | 2022-05-07 09:25 | NUR ---
RN NOTE: NIFEDIPINE MED IS EXTENDED RELEASE AND CANNOT BE CRUSHED. PT IS NPO EXCEPT MEDS AND HAS NG TUBE IN PLACE. CALLED PHARMACY TO NOTIFY.
[2022-05-07] MEDS: NIFEdipine (10MG) 10 MG CAPSULE PO SCH ×4 (10:00→21:00)
--- NOTE | 2022-05-07 10:00 | NUR ---
RN NOTE: NEFIDIPINE PT IS NPO EXCEPT MEDS AND HAS NG TUBE. NEFIDIPINE GEL CAPSULES CANNOT BE GIVEN AT THIS TIME. PHARMACY IS AWARE.
[2022-05-07] MEDS ORDERED: NEPRO 1,000 ML BOTTLE GT PRN (11:00)
--- NOTE | 2022-05-07 12:13 | NUR ---
RN NOTE: NEFIDIPINE WAS NOT PULLED FROM [facility]. MEDICATION CAN NOT BE GIVEN AT THIS TIME BECAUSE PILL IS GEL CAP.
[2022-05-07] MEDS: INSULIN REGULAR, HUMAN 100 UNIT/ML 3 ML VIAL SQ PRN ×2 (12:28→18:31)
--- NOTE | 2022-05-07 12:28 | NUR ---
RN NOTE: ACCUCHECK PT BS 128. PER SLIDING SCALE, NO COVERAGE NEEDED AT THIS TIME.
--- NOTE | 2022-05-07 14:53 | NUR ---
RN NOTE: TRANFER TO 315/2 PT STABLE AT THIS TIME. PT TRANSFERRED WITH ALL BELONGINGS. REPORT GIVEN TO SAMARA HEBERT.
--- NOTE | 2022-05-07 15:00 | NUR ---
RN NOTE RECEIVED PATIENT FROM ICU, TRANSPORTED VIA BED ACCOMPANIED BY SAMARA BRYANT. BEDSIDE REPORT RECEIVED. PATIENT IS AWAKE, A/O X1, VERBALLY RESPONSIVE. NO SIGNS OF ACUTE DISTRESS NOTED. ON O2 INHALATION @4LPM VIA N/C, NO SOB NOTED, BREATHING EVEN AND UNLABORED. SUCTIONED ORAL SECRETIONS NEEDED. NOTED WITH NGTUBE TO RIGHT NARES, POSITIVE PLACEMENT. WITH MIDLINE ON RIGHT UPPER ARM, INTACT AND PATENT, SALINE LOCKED AND WITH RIGHT CHEST WALL PERMACATH INTACT WITH DRESSING C/D/I. PLACED PATIENT ON APPLICATION PROCESSOR, READING SINUS RHYTHM, HR @ 63. PATIENT NOTED WITH SACRAL DTI AND RIGHT ELBOW SKIN TEAR. TREATMENT RENDERED. STARTED PATIENT ON TUBE FEEDING OF NEPRO @20ML/HR, TOLERATING WELL. SAFETY MEASURE IN PLACE.ED IN LOWEST AND LOCKED POSITION. SIDE RAILS UP X2, CALL LIGHT PLACED WITHIN EASY REACH. WILL CONTINUE TO MONITOR PATIENT.
--- NOTE | 2022-05-07 18:53 | NUR ---
RN CLOSING NOTE PATIENT IN BED AWAKE, A/O X1, VERBALLY RESPONSIVE. NO SIGNS OF ACUTE DISTRESS NOTED, REMAINS ON O2 @ 4LPM VIA N/C NO SOB NOTED. NG-TUBE INTACT AND PATENT, NEPRO @ 20 ML/HR RUNNING. HOB ELEVATED, ASPIRATION PRECAUTIONS OBSERVED. IV ACCESS ON RIGHT UPPER ARM MIDLINE, INTACT AND PATENT, SL. RIGHT CHEST WALL PERMACATH INTACT WITH DRESSING C/D/I. SAFETY MEASURE MAINTAINED. WILL ENDORSE TO NEXT SHIFT FOR LISA.
--- NOTE | 2022-05-07 19:38 | NUR ---
RN OPENING NOTE PATIENT AWAKE IN BED. A/OX4 (NAME). NO S/S OF DISTRESS, BREATHING WITHOUT DIFFICULTY ON 4L NC. MILAGROS MIDLINE #18 SL INTACT AND PATENT; RCW PERMACATH INTACT W/ NO SIGNS OF BLEEDING. NEPRO RUNNING AT 20ML/HR W/ GOAL OF 40ML/HR. TELE READS SB 57 WHICH PER SPORTS PHYSIOLOGIST IS WITHIN PATIENT BASELINE. SAFETY MEASURES IN PLACE: BED LOCKED AND AT LOWEST POSITION, RAILS UP X2, CALL ROSS WITHIN REACH. WILL CONTINUE TO MONITOR PATIENT.
[2022-05-07] MEDS: ATORVASTATIN 40 MG TABLET NG SCH (21:36)
[2022-05-08] VITALS (7 sets, daily range): BP systolic 113–156; BP diastolic 59–79
[2022-05-08] MEDS: BLOOD SUGAR DIAGNOSTIC 1 EACH STRIP IN SCH ×5 (00:06→23:37)
[2022-05-08] MEDS: PIPERACILLIN /TAZOBACTAM 2.25 G in IV D5W 50 ML IV SCH ×4 (00:06→23:37)
[2022-05-08] MEDS: INSULIN REGULAR, HUMAN 100 UNIT/ML 3 ML VIAL SQ PRN ×4 (00:13→23:59)
--- NOTE | 2022-05-08 06:52 | NUR ---
RN CLOSING NOTE PATIENT ASLEEP IN BED. A/OX1. NO S/S OF DISTRESS, BREATHING WITHOUT DIFFICULTY ON 4L NC. MILAGROS MIDLINE #18 SL INTACT AND PATENT. RCW PERMACATH INTACT WITH NO SIGNS OF DISLODGMENT OR BLEEDING. TELE READS SB 58. NEPRO 20ML/HR WITHOUT ISSUE. SAFETY MEASURES IN PLACE: BED LOCKED AND AT LOWEST POSITION, RAILS UP X2, CALL ROSS WITHIN REACH. WILL ENDORSE TO NEXT SHIFT FOR LISA.
--- NOTE | 2022-05-08 07:46 | NUR ---
CADD DRAFTER NOTES PT IN BED, ASLEEP, EASY TO AROUSE, NO SIGN OF PAIN OR DISTRESS, CALL LIGHT WITHIN REACH, GT FEEDING INFUSING WELL.
[2022-05-08 08:12] LABS: POTASSIUM 5.2 mmol/L (3.5-5.1)
[2022-05-08 08:25] LABS: ABG BASE EXCESS -6.1 mmol/L; ABG OXYGEN SATURATION 99.4 % (92.0-98.5); ABG PCO2 37.2 mmHg (35.0-45.0); ABG PO2 229.9 mmHg (75.0-100.0); COHb 0.9 % (0.5-1.5); MetHb 0.2 % (0.0-1.5); O2Hb 98.3 % (94.0-97.0); SITE, ABG Left Radial; VENT MODE, BG 3LPM NC
[2022-05-08 08:27] LABS: CREATININE 8.2 mg/dL (0.6-1.3)
[2022-05-08] MEDS: GUAIFENESIN 300 MG/15 ML UDC NG SCH ×2 (08:43→21:26)
[2022-05-08] MEDS: FUROSEMIDE 20 MG TABLET NG SCH (08:44)
[2022-05-08] MEDS: PANTOPRAZOLE 40 MG/PACK PACK NG SCH (08:44)
[2022-05-08] MEDS: GABAPENTIN 100 MG CAPSULE NG SCH ×3 (08:44→17:04)
[2022-05-08] MEDS: CLOPIDOGREL BISULFATE 75 MG TABLET NG SCH (08:44)
[2022-05-08] MEDS: LEVETIRACETAM SOL (5 ML) 100 MG/ML UDC NG SCH ×2 (08:44→21:27)
[2022-05-08] MEDS: hydrALAZINE HCL 50 MG TABLET NG SCH ×3 (08:45→17:00)
[2022-05-08] MEDS: AMIODARONE HCL 200 MG TABLET NG SCH ×3 (08:45→17:00)
[2022-05-08] MEDS: LINAGLIPTIN 5 MG TABLET NG SCH (08:45)
[2022-05-08] MEDS: ASPIRIN 81 MG TAB.CHEW NG SCH (08:45)
[2022-05-08] MEDS: METOPROLOL TARTRATE 25 MG TABLET NG SCH ×2 (08:46→17:00)
[2022-05-08] MEDS: NIFEdipine (10MG) 10 MG CAPSULE PO SCH ×4 (09:00→21:26)
[2022-05-08] MEDS: Z GUARD REMEDY 4 OZ OINT TP SCH ×2 (12:42→22:00)
--- NOTE | 2022-05-08 18:47 | NUR ---
INSPECTOR FILTERS NOTES PT IN BED, RESTING, ALERT TO SELF, NO COMPLAINT OF PAIN, NOT IN DISTRESS, GT FEEDING INFUSING WELL, COMPLETED HEMODIALYSIS TODAY, TOLERATED WELL, DUE MEDS GIVEN ORDERED, PM CARE PROVIDED.
--- NOTE | 2022-05-08 19:05 | NUR ---
HAIR DRESSER OPENING NOTE PATIENT IS AWAKE IN BED. PATIENT'S FAMILY MEMBERS ARE AT HIS BED SIDE. 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 A/O X 3, (NOT KNOWING THE DATE AND TIME). PATIENT IS ON RA, NO S/S OF SOB OR DISTRESS. IV ACCESS IS AT R UA MIDLINE #18; SL; INTACT AND PATENT. RCW PERMACATH, DRESSING IS CLEAN AND INTACT. PATIENT HAS NG TUBING INSERTED INTO HIS RIGHT NARIS; PLACEMENT IS CHECKED BY ASPIRING THE FLUID FROM THE NG-TUBE AND RETURNED IT BACK TO THE PATIENT. NEPRO RUNNING AT 40ML/HR. NO RESIDUAL. TOLERATED WELL. PATIENT IS ON EXTERNAL HEART MONITOR, HEART RHYTHM IS SR AT 70S. SAFETY MEASURES IN PLACE: BED LOCKED AND AT LOWEST POSITION, RAILS UP X2. PATIENT IS BLIND, INSTRUCTED THE PATIENT TO TOUCH AND FEEL THE CALL ROSS. CALL ROSS IS PUT IN PATIENT'S HANDS. HOB ELEVATED AT 45 DEGREE. WILL CONTINUE MONITORING THIS PATIENT AND PROVIDE THE NEEDS HE NEEDS.
[2022-05-08] MEDS: ATORVASTATIN 40 MG TABLET NG SCH (21:23)
[2022-05-09 00:01] VITALS: BP 149/66
[2022-05-09] MEDS: BLOOD SUGAR DIAGNOSTIC 1 EACH STRIP IN SCH ×4 (06:21→23:33)
[2022-05-09 07:07] VITALS: BP 134/88
--- NOTE | 2022-05-09 07:30 | NUR ---
TREATMENT COUNSELOR NOTES PT IN BED, AWAKE, ALERT AND ORIENTED, NO COMPLAINT OF PAIN, NOT IN DISTRESS, COMFORTABLY SLEEPING IN BED, EASY TO AROUSE, SHOWS AFIB ON THE TELE MONITOR, DR. MCKINNEY INFORMED, NO NEW ORDER GIVEN, WILL CONTINUE TO MONITOR.
--- NOTE | 2022-05-09 07:56 | NUR ---
MIRROR INSTALLER CLOSING NOTE PATIENT IS SLEEPING IN BED. PATIENT IS ON 4 LPM OXYGEN, NO S/S OF SOB OR DISTRESS. PATIENT STATED HAVING A-FIB ON TELE MONITOR THIS MORNING. ACCESSED THE PATIENT, PATIENT WAS RECOVERED AFTER HAVE FEW SECONDS OF SOB. INCREASED THE OXYGEN TO 6 LPM, STOPPED THE FEEDING PUMP, ELEVATED THE HOB FROM SEMI YEE TO HIGH YEE POSITION, AND ACCOMPANYING THE PATIENT AND PREPARING FOR THE NEXT RESPONSE TO PATIENT'S CONDITION. PATIENT RECOVERED FROM THE SOB, AND CHARGE NURSE, YOSELYN WAS NOTIFIED. SAMARA TOPETE, CAME ACCESSED THE PATIENT WELL. ORDERED STAT EKG, THE RESULT IS A-FIB. PATIENT'S IV ACCESS IS AT R UA MIDLINE #18; SL; INTACT AND PATENT. RCW PERMACATH, DRESSING IS CLEAN AND INTACT. PATIENT'S NG TUBING PLACEMENT IS CHECKED, PATIENT AND INTACT. WILL ENDORSE NEXT SHIFT NURSE FOR CONTINUE PATIENT CARE.
[2022-05-09] MEDS: PIPERACILLIN /TAZOBACTAM 2.25 G in IV D5W 50 ML IV SCH ×3 (08:42→23:34)
[2022-05-09 09:07] LABS: BASOPHILS % (AUTO) 0.2 % (0.0-2.0); EOSINOPHILS % (AUTO) 3.7 % (0.0-6.0); HEMATOCRIT 42 % (39-51); HEMOGLOBIN 13.1 g/dL (13.5-17.5); MEAN CORPUSCULAR HGB CONC 32 g/dl (31.0-36.0); MEAN CORPUSCULAR VOLUME 93 fL (80-96); MONOCYTES # (AUTO) 1.5 K/uL (0.1-1.30); MONOCYTES % (AUTO) 10.7 % (2.0-12.0); NEUTROPHILS # (AUTO) 10.8 K/uL (1.8-8.9); NEUTROPHILS % (AUTO) 78.4 % (43.0-81.0); PLATELET COUNT (AUTO) 196 K/uL (150-450); RED BLOOD CELL COUNT(AUTO) 4.45 MIL/uL (4.5-6.0); WHITE BLOOD COUNT (AUTO) 13.7 K/uL (4.3-11.0)
[2022-05-09] MEDS: CLOPIDOGREL BISULFATE 75 MG TABLET NG SCH (11:25)
[2022-05-09] MEDS: ASPIRIN 81 MG TAB.CHEW NG SCH (11:27)
[2022-05-09] MEDS: ATORVASTATIN 40 MG TABLET NG SCH (11:27)
[2022-05-09] MEDS: ALPRAZOLAM 1 MG TABLET NG PRN (11:27)
[2022-05-09] MEDS: GABAPENTIN 100 MG CAPSULE NG SCH ×3 (11:28→17:43)
[2022-05-09] MEDS: AMIODARONE HCL 200 MG TABLET NG SCH ×3 (11:28→17:40)
[2022-05-09] MEDS: LINAGLIPTIN 5 MG TABLET NG SCH (11:29)
[2022-05-09] MEDS: FUROSEMIDE 20 MG TABLET NG SCH (11:29)
[2022-05-09] MEDS: hydrALAZINE HCL 50 MG TABLET NG SCH ×3 (11:30→17:42)
[2022-05-09] MEDS: PANTOPRAZOLE 40 MG/PACK PACK NG SCH (11:37)
[2022-05-09] MEDS: NIFEdipine (10MG) 10 MG CAPSULE PO SCH ×4 (11:37→20:36)
[2022-05-09] MEDS: METOPROLOL TARTRATE 25 MG TABLET NG SCH ×2 (11:38→17:42)
[2022-05-09] MEDS: LEVETIRACETAM SOL (5 ML) 100 MG/ML UDC NG SCH ×2 (11:53→20:35)
[2022-05-09] MEDS: GUAIFENESIN 300 MG/15 ML UDC NG SCH ×2 (11:53→20:35)
[2022-05-09] MEDS: Z GUARD REMEDY 4 OZ OINT TP SCH ×2 (11:55→20:39)
--- NOTE | 2022-05-09 12:50 | NUR ---
Pt pulled his sukumar ml #18g, gets agitated and potentially pulling out ngt & r chest wall permacath. JUAN DAVID stauffer ordered restraint for safety
[2022-05-09] MEDS ORDERED: QUETIAPINE FUMARATE 25 MG TABLET PO ONE (13:00)
[2022-05-09] MEDS: INSULIN REGULAR, HUMAN 100 UNIT/ML 3 ML VIAL SQ PRN ×3 (13:46→23:38)
[2022-05-09] MEDS: QUETIAPINE FUMARATE 25 MG TABLET PO SCH (17:37)
--- NOTE | 2022-05-09 18:45 | NUR ---
MS RN CLOSING NOTES PT ASLEEP WITH NEW IV ACCESS AT L UA #22 INTACT AND PATENT. RCW PERMACATH, DRESSING, PLACEMENT CLEAN AND INTACT WELL NG TUBING. PLS BE AWARE PT IS ON RESTRAINT MONITORING PER JUAN DAVID MCKINNEY'S ORDER FOR SAFETY. PT WAS EARLIER AGITATED AND PULLED HIS R UA IV. MEDS GIVEN ORDERED. PLS CONTINUE TO MONITOR. WILL ENDORSE TO NIGHTSHIFT NURSE
--- NOTE | 2022-05-09 19:15 | NUR ---
RN ON SITE OPENING NOTE PATIENT IS AWAKE IN BED. HE IS CONFUSED, AO X 1. PATIENT IS ON 4 LPM OXYGEN, TOLERATED WELL. NO S/S OF SOB OR DISTRESS. IV ACCESS IS AT L UA, #22 G, SL; INTACT AND PATENT. RCW PERMACATH, DRESSING IS CLEAN AND INTACT. PATIENT HAS NG TUBING INSERTED INTO HIS RIGHT NARIS; PLACEMENT IS CHECKED BY ASPIRING THE FLUID FROM THE NG-TUBE AND RETURNED IT BACK TO THE PATIENT. INJECTED 30 ML OF AIR, AND HEARD AIR SOUND WHEN AUSCULTATED HIS STOMACH. NEPRO RUNNING AT 40ML/HR. NO RESIDUAL. TOLERATED WELL. PATIENT IS ON EXTERNAL HEART MONITOR, HEART RHYTHM IS SR WITH A-FIB, AT 60S. SAFETY MEASURES IN PLACE: BED LOCKED AND AT LOWEST POSITION, RAILS UP X2. PATIENT IS BLIND, INSTRUCTED THE PATIENT TO TOUCH AND FEEL THE CALL ROSS. CALL ROSS IS PUT IN PATIENT'S HANDS. HOB IS ELEVATED AT HIGH YEE POSITION. WILL CONTINUE MONITORING THIS PATIENT AND PROVIDE THE NEEDS HE NEEDS.
[2022-05-09 20:00] VITALS: BP 126/66
--- NOTE | 2022-05-09 23:55 | NUR ---
FORM SETTER STEEL FORMS NOTE PATIENT IS AGITATED. WHEN HELPED THE BAT CARRIER, ROSI, CHANGED THE PATIENT, PATIENT KICKED ON MY RIGHT SIDE M[place]A AREA.CHARGE NURSE, VAISHNAVI, RN NOTIFIED. CHARGE NURSEVAISHNAVI SUGGESTED ME TO GO TO ER. I WILL KEEP MONITOR THE SITUATION TO SEE WHETHER I NEED MEDICAL ATTENTION.
--- NOTE | 2022-05-10 00:30 | NUR ---
RN notes Received Pt from SAMARA Merida. Pt is resting in bed comfortable. Pt is alert and orientedX1. On 4 L NC. No SOB. no S/s of distress noted. NGT on R nares is running nephro @ 40 ml/hr. R chest wall permacath is clean, and intact. NATHALIA # 22 is clean, intact and SL. Safety precautions is maintained. Will continue to monitor.
[2022-05-10 01:16] VITALS: BP 132/67
--- NOTE | 2022-05-10 03:59 | NUR ---
RN notes Transferred LISA to primary nurse SAMARA Merida.
[2022-05-10] MEDS: NEPRO 1,000 ML BOTTLE GT PRN (05:04)
[2022-05-10 05:06] VITALS: BP 146/77
[2022-05-10] MEDS: BLOOD SUGAR DIAGNOSTIC 1 EACH STRIP IN SCH ×3 (05:37→17:12)
[2022-05-10] MEDS: INSULIN REGULAR, HUMAN 100 UNIT/ML 3 ML VIAL SQ PRN ×4 (05:39→23:58)
--- NOTE | 2022-05-10 07:01 | NUR ---
OUTBOUND SALES CONSULTANT CLOSING NOTE PATIENT IS SLEEPING IN BED. PATIENT IS ON 4 LPM OXYGEN, TOLERATED WELL. NO S/S OF SOB OR DISTRESS. IV ACCESS IS AT L UA, #22 G, SL; INTACT AND PATENT. RCW PERMACATH, DRESSING IS CLEAN AND INTACT. NG-TUBE IS PATENT AND INTACT. NEPRO RUNNING AT 40ML/HR. NO RESIDUAL.TOLERATED WELL. PATIENT IS ON EXTERNAL HEART MONITOR, HEART RHYTHM IS SR WITH A-FIB AND A FLUTTER AT 60S. AWARE.(DR. RAY IS HERE THIS MORNING). PATIENT IS STILL ON HEMO DIALYSIS. SAFETY MEASURES IN PLACE: BED LOCKED AND AT LOWEST POSITION, RAILS UP X2. PATIENT IS BLIND, INSTRUCTED THE PATIENT TO TOUCH AND FEEL THE CALL ROSS. CALL ROSS IS PUT IN PATIENT'S HANDS. HOB IS ELEVATED AT HIGH YEE POSITION. WILL CONTINUE MONITORING THIS PATIENT AND PROVIDE THE NEEDS HE NEEDS.
[2022-05-10 07:19] LABS: CALCIUM, SERUM 9.6 mg/dL (8.5-10.1); CREATININE 7.3 mg/dL (0.6-1.3); POTASSIUM 4.4 mmol/L (3.5-5.1)
--- NOTE | 2022-05-10 07:35 | NUR ---
DIPLOMA MEDICAL ASSISTANT OPENING NOTE RECEIVED PATIENT AWAKE IN BED. MUMRONI, ANGOLAN SPEAKING ONLY, AO X 1, AWARE OF SELF ONLY, PATIENT IS ON 4 LPM OXYGEN, TOLERATING WELL AT 94% SPO2. NO RESPIRATORY DISTRESS. IV ACCESS IS AT NATHALIA, G#22, SALINE LOCKED INTACT AND PATENT, FLUSHING WELL. RCW PERMACATH, DRESSING IS C/D/I. PATIENT HAS NG TUBING INSERTED INTO HIS RIGHT NARES; PLACEMENT IS CHECKED BY ASPIRING THE FLUID FROM THE NG-TUBE AND RETURNED IT BACK TO THE PATIENT. INJECTED 30 ML OF AIR, HEARD SOUND WHEN AUSCULTATED HIS STOMACH. NEPRO RUNNING AT 40ML/HR. NO RESIDUAL. TOLERATED WELL. PATIENT IS ON EXTERNAL HEART MONITOR, HEART RHYTHM IS SR WITH A-FLUTTER, AT 100S. PATIENT'S LUNG IS CONGESTED UPON AUSCULTATION, GENTLE SUCTIONING PERFORMED TO CLEAR THE AIRWAYS. SAFETY MEASURES IN PLACE: BED LOCKED AND AT LOWEST POSITION, RAILS UP X2. PATIENT IS BLIND, ORIENTED PATIENT TO THE CALL LIGHT. CALL LIGHT WITHIN REACH WELL. HOB IS ELEVATED AT HIGH YEE POSITION. WILL CONTINUE MONITORING THIS PATIENT.
[2022-05-10] MEDS: hydrALAZINE HCL IV 20 MG VIAL IV PRN (07:45)
[2022-05-10 08:00] VITALS: BP 161/116
--- NOTE | 2022-05-10 08:15 | NUR ---
RN NOTES - SEVERE HYPERTENSION AT 183/102, HYDRALAZINE 10 MG 0.5 ML IV PRN WAS GIVEN.
[2022-05-10] MEDS: PIPERACILLIN /TAZOBACTAM 2.25 G in IV D5W 50 ML IV SCH ×3 (08:23→23:46)
[2022-05-10] MEDS: GUAIFENESIN 300 MG/15 ML UDC NG SCH ×2 (08:30→21:45)
--- NOTE | 2022-05-10 08:30 | NUR ---
RN NOTES - HD DONE HD NURSE DIPIKA REPORTS OUTPUT OF 1.5 L OF FLUIDS. PATIENT REMAINS STABLE.
[2022-05-10] MEDS: AMIODARONE HCL 200 MG TABLET NG SCH (08:31)
[2022-05-10] MEDS: GABAPENTIN 100 MG CAPSULE NG SCH ×3 (08:31→16:34)
[2022-05-10] MEDS: PANTOPRAZOLE 40 MG/PACK PACK NG SCH (08:32)
[2022-05-10] MEDS: LINAGLIPTIN 5 MG TABLET NG SCH (08:32)
[2022-05-10] MEDS: hydrALAZINE HCL 50 MG TABLET NG SCH ×3 (08:32→16:35)
[2022-05-10] MEDS: LEVETIRACETAM SOL (5 ML) 100 MG/ML UDC NG SCH ×2 (08:33→21:44)
[2022-05-10] MEDS: CLOPIDOGREL BISULFATE 75 MG TABLET NG SCH (08:33)
[2022-05-10] MEDS: ASPIRIN 81 MG TAB.CHEW NG SCH (08:33)
[2022-05-10] MEDS: FUROSEMIDE 20 MG TABLET NG SCH (08:34)
[2022-05-10] MEDS: QUETIAPINE FUMARATE 25 MG TABLET PO SCH ×2 (08:34→16:36)
[2022-05-10] MEDS: METOPROLOL TARTRATE 25 MG TABLET NG SCH ×2 (08:37→16:35)
[2022-05-10] MEDS: NIFEdipine (10MG) 10 MG CAPSULE PO SCH ×4 (08:37→21:45)
[2022-05-10] MEDS: APIXABAN 2.5 MG TABLET PO SCH ×2 (08:51→16:37)
[2022-05-10] MEDS: Z GUARD REMEDY 4 OZ OINT TP SCH ×2 (10:02→22:06)
--- NOTE | 2022-05-10 11:30 | NUR ---
RN NOTES - PATIENT WAS SEEN BY SPEECH THERAPIST, TOO CONGESTED AND CONFUSED TO ATTEMPT TO FEED PUREED DIET, PLACED HIM BACK ON NPO.
[2022-05-10 12:24] LABS: BASOPHILS % (AUTO) 0.3 % (0.0-2.0); EOSINOPHILS % (AUTO) 4.4 % (0.0-6.0); HEMATOCRIT 38 % (39-51); LYMPHOCYTES # (AUTO) 0.9 K/uL (0.8-4.8); LYMPHOCYTES % (AUTO) 8.1 % (20.0-44.0); MEAN CORPUSCULAR HGB CONC 32 g/dl (31.0-36.0); MEAN CORPUSCULAR VOLUME 92 fL (80-96); MONOCYTES # (AUTO) 1.4 K/uL (0.1-1.30); MONOCYTES % (AUTO) 12.3 % (2.0-12.0); NEUTROPHILS # (AUTO) 8.4 K/uL (1.8-8.9); NEUTROPHILS % (AUTO) 74.9 % (43.0-81.0); PLATELET COUNT (AUTO) 167 K/uL (150-450); RED BLOOD CELL COUNT(AUTO) 4.08 MIL/uL (4.5-6.0); WHITE BLOOD COUNT (AUTO) 11.2 K/uL (4.3-11.0)
--- NOTE | 2022-05-10 19:25 | NUR ---
HEALTH UNDERWRITER OPENING NOTE PATIENT AWAKE IN BED, LETHARGIC, AO X 1, AWARE OF SELF ONLY, PATIENT IS ON 4 LPM OXYGEN, TOLERATING WELL AT 94% SPO2. NO RESPIRATORY DISTRESS. HEAD OF BED ELEVATED 40% AT ALL TIMES. IV ACCESS IS AT NATHALIA, G#22, SALINE LOCKED INTACT AND PATENT, FLUSHING WELL. RCW PERMACATH, DRESSING IS C/D/I. NG TUBE FEEDING RUNNING WITH NEPRO AT 40 ML/HR. PATENT, PLACEMENT CHECKED AND AUSCULTATED, NO RESIDUAL. CXRAY DONE. TOLERATED WELL. PATIENT IS ON EXTERNAL HEART MONITOR, HEART RHYTHM IS SR WITH A-FLUTTER, AT 95S. PATIENT HAS BILATERAL SOFT ARM RESTRAINTS, CHECKED FOR SAFETY AND CIRCULATION. ALL NEEDS MET, ALL DUE MEDS GIVEN. SAFETY MEASURES IN PLACE: BED LOCKED AND AT LOWEST POSITION, RAILS UP X2. PATIENT IS BLIND, ORIENTED PATIENT TO THE CALL LIGHT. CALL LIGHT WITHIN REACH WELL. ENDORSED TO RECYCLING SPECIALIST NURSE.
--- NOTE | 2022-05-10 20:00 | NUR ---
YARN WASHER OPENING NOTES: PATIENT SLEEP IN BED COMFORTABLY, HOB AT 45 DEGREE, BED IN LOW POSITION CALL LIGHTS WITHIN REACH NO COMPLAIN OF PAIN AND DISCOMFORT AT THIS TIME, NO FACIAL GRIMACING WAS OBSERVED,PATIENT IS A/OX1 ON NGT TUBE WITH ONGOING NEPRO@40ML/HR INFUSING WELL, PATIENT ON BILATERAL SOFT WRIST RESTRAINT, CHECK FOR SKIN BREAKDOWN Q2H, ON TELE MONITOR- AFIB,A FLUTTER-68, WITH RCW PERMACATH DIALYSIS DONE TODAY PATIENT KEPT CLEAN AND DRY ALL NEEDS MET WILL CONTINUE TO MONITOR.
[2022-05-10 20:20] VITALS: BP 122/64
[2022-05-10] MEDS ORDERED: QUETIAPINE FUMARATE 25 MG TABLET PO PRN (20:30)
[2022-05-10] MEDS: ATORVASTATIN 40 MG TABLET NG SCH (21:45)
[2022-05-11] VITALS: BP 123/61
[2022-05-11] MEDS: BLOOD SUGAR DIAGNOSTIC 1 EACH STRIP IN SCH ×5 (00:05→23:55)
[2022-05-11 04:00] VITALS: BP 131/74
[2022-05-11] MEDS: NEPRO 1,000 ML BOTTLE GT PRN (06:14)
--- NOTE | 2022-05-11 06:25 | NUR ---
RN NOTES: BLOOD SUGAR-193/3 UNITS REG INSULIN GIVEN PER SLIDING SCALE
--- NOTE | 2022-05-11 06:47 | NUR ---
RUG SETTER AXMINSTER CLOSING NOTES: PATIENT SLEEP IN BED COMFORTABLY HEAD OF THE BED AT 40 DEGREE AT TALL TIME, BED IN LOW POSITION CALL LIGHTS WITHIN REACH, NO COMPLAIN OF PAIN AND DISCOMFORT , NO FACIAL GRIMACING WAS OBSERVED, ON G TUBE FEEDING OF NEPRO 1.8@40ML/HR INFUSING WELL, PATIENT ON TELE MONITOR- AFIB/ A FLATTER-83,NO SYMPTOMS WAS OBSERVED, PATIENT KEPT CLEAN AND DRY ALL NEEDS MET ENDORSE TO INCOMING SHIFT.
[2022-05-11] MEDS: INSULIN REGULAR, HUMAN 100 UNIT/ML 3 ML VIAL SQ PRN ×3 (06:52→18:03)
[2022-05-11 07:00] VITALS: BP 164/74
--- NOTE | 2022-05-11 07:00 | NUR ---
CANNON FIRE DIRECTION SPECIALIST OPENING NOTES PATIENT LAYING IN BED, A/OX 1, TOLERATING WELL ON ROOM AIR WITH NO S/S RESPIRATORY DISTRESS. NO COMPLAINTS OF PAIN OR DISCOMFORT AT THIS TIME. NG TUBE IN PLACE WITH NEPHRO 1.8 @ 40 ML/HR. TELE MONITOR IN PLACE READING AFIB/A FLUTTER 80. NATHALIA # 20 G SL CLEAN, INTACT, AND FLUSHING WELL. R CHEST WALL PERMACATH IN PLACE, INTACT WITH NO S/S INFECTION. SAFETY MEASURES IN PLACE: BED IN LOWEST LOCKED POSITION, SIDE RAILS UP X 2, CALL LIGHT WITHIN REACH. WILL CONTINUE TO MONITOR. Addendum: 05/11/22 at 1855 by DUANE OWENS RN PATIENT WITH BILATERAL SOFT WRIST RESTRAINTS WITH CIRCULATION/MOTOR/SENSATION INTACT DISTALLY X 2
[2022-05-11] MEDS: PIPERACILLIN /TAZOBACTAM 2.25 G in IV D5W 50 ML IV SCH ×3 (08:29→23:48)
[2022-05-11] MEDS: GUAIFENESIN 300 MG/15 ML UDC NG SCH ×2 (09:03→21:00)
[2022-05-11] MEDS: GABAPENTIN 100 MG CAPSULE NG SCH ×3 (09:04→17:22)
[2022-05-11] MEDS: ASPIRIN 81 MG TAB.CHEW NG SCH (09:04)
[2022-05-11] MEDS: LEVETIRACETAM SOL (5 ML) 100 MG/ML UDC NG SCH ×2 (09:04→21:01)
[2022-05-11] MEDS: PANTOPRAZOLE 40 MG/PACK PACK NG SCH (09:05)
[2022-05-11] MEDS: FUROSEMIDE 20 MG TABLET NG SCH (09:05)
[2022-05-11] MEDS: hydrALAZINE HCL 50 MG TABLET NG SCH ×3 (09:05→17:23)
[2022-05-11] MEDS: CLOPIDOGREL BISULFATE 75 MG TABLET NG SCH (09:05)
[2022-05-11] MEDS: LINAGLIPTIN 5 MG TABLET NG SCH (09:05)
[2022-05-11] MEDS: NIFEdipine (10MG) 10 MG CAPSULE PO SCH ×4 (09:06→20:56)
[2022-05-11] MEDS: METOPROLOL TARTRATE 25 MG TABLET NG SCH ×2 (09:06→17:23)
[2022-05-11] MEDS: QUETIAPINE FUMARATE 25 MG TABLET PO SCH ×2 (09:06→17:24)
[2022-05-11] MEDS: Z GUARD REMEDY 4 OZ OINT TP SCH ×2 (09:10→21:01)
[2022-05-11] MEDS: CLONIDINE HCL 0.2MG/24H PTWK 1 EA PATCH TD SCH (09:10)
[2022-05-11 12:00] VITALS: BP 125/68
[2022-05-11 12:47] LABS: BASOPHILS % (AUTO) 0.1 % (0.0-2.0); EOSINOPHILS % (AUTO) 0.2 % (0.0-6.0); HEMATOCRIT 41 % (39-51); HEMOGLOBIN 13.2 g/dL (13.5-17.5); LYMPHOCYTES # (AUTO) 0.6 K/uL (0.8-4.8); MEAN CORPUSCULAR HGB CONC 32 g/dl (31.0-36.0); MEAN CORPUSCULAR VOLUME 93 fL (80-96); MONOCYTES # (AUTO) 0.8 K/uL (0.1-1.30); NEUTROPHILS # (AUTO) 13.6 K/uL (1.8-8.9); NEUTROPHILS % (AUTO) 90.7 % (43.0-81.0); PLATELET COUNT (AUTO) 165 K/uL (150-450); RED BLOOD CELL COUNT(AUTO) 4.42 MIL/uL (4.5-6.0)
[2022-05-11 13:05] LABS: CALCIUM, SERUM 9.3 mg/dL (8.5-10.1); CREATININE 7.4 mg/dL (0.6-1.3); POTASSIUM 4.9 mmol/L (3.5-5.1)
[2022-05-11 16:00] VITALS: BP 136/62
[2022-05-11] MEDS ORDERED: ACETAMINOPHEN 325 MG TABLET PO PRN ×2 (16:00→18:00)
[2022-05-11] MEDS ORDERED: ACETAMINOPHEN 650 MG/20.3 ML UDC NG ONE (18:00)
--- NOTE | 2022-05-11 18:13 | NUR ---
SYNTHETIC FILAMENT EXTRUDER NOTES TOTAL 650 MG TYLENOL NG GIVEN TO PATIENT FOR FEVER. WILL CONTINUE TO MONITOR FOR S/S FEVER.
--- NOTE | 2022-05-11 18:55 | NUR ---
SOLAR THERMAL TECHNICIAN CLOSING NOTES PATIENT LAYING IN BED, A/OX 1, TOLERATING WELL ON ROOM AIR WITH NO S/S RESPIRATORY DISTRESS. NO COMPLAINTS OF PAIN OR DISCOMFORT AT THIS TIME. NG TUBE IN PLACE WITH NEPHRO 1.8 @ 40 ML/HR. TELE MONITOR IN PLACE READING AFIB/A FLUTTER 76. NATHALIA # 20 G SL CLEAN, INTACT, AND FLUSHING WELL. R CHEST WALL PERMACATH IN PLACE, INTACT WITH NO S/S INFECTION. SAFETY MEASURES IN PLACE: BED IN LOWEST LOCKED POSITION, SIDE RAILS UP X 2, CALL LIGHT WITHIN REACH. ALL NEEDS MET. WILL ENDORSE TO [employer] FOR [employer].
[2022-05-11 20:00] VITALS: BP 97/51
--- NOTE | 2022-05-11 20:05 | NUR ---
received in bed HOB elevated asprecautions maintained NGT feeding on a pimp 40ml hr checked for residial no residual placement checked and in the stomach wrist restraints removed and allowed the patient to move about then reapplied he does go for the NGT when hands are free
[2022-05-11] MEDS: ATORVASTATIN 40 MG TABLET NG SCH (21:57)
[2022-05-12] VITALS: BP 101/54
--- NOTE | 2022-05-12 | NUR ---
neuro checks: not opening eyes when name called will turn head in direction of hand being touched at times speech understandable most ofthe time he rambles on talking at random nothing to do with the present situation pfeiffer not follow commands hand timber selector strong with oral care he bites on the green songe and allows me to clean his inner mouth and lips never opening his eyes
[2022-05-12] MEDS: INSULIN REGULAR, HUMAN 100 UNIT/ML 3 ML VIAL SQ PRN ×3 (00:07→13:01)
[2022-05-12] MEDS: IV NS 0.9% 250 ML IV PRN (01:36)
--- NOTE | 2022-05-12 04:17 | NUR ---
Closing notes: alertness shown when his are is touched he will turn his head to the side being touched will not open eyes hand edge burnisher uppers strong wrist restraint on when removed he will with a strong machine ceramic coater feel around and attempt to pull at whatever he can he talks but is making no sense aspirations this 12 hours D/T NGT in place to the right nostril retaped and secured feeding on the feeding pump 40ml hr with H20 flushes noted rt C/W a perm cath covered with opsite he is max assist with everyday carend repositioning he is cooperative when mouthcare is being given
[2022-05-12] MEDS: BLOOD SUGAR DIAGNOSTIC 1 EACH STRIP IN SCH ×3 (05:28→18:30)
[2022-05-12 05:52] LABS: BASOPHILS % (AUTO) 0.3 % (0.0-2.0); HEMATOCRIT 39 % (39-51); HEMOGLOBIN 12.2 g/dL (13.5-17.5); LYMPHOCYTES # (AUTO) 0.8 K/uL (0.8-4.8); LYMPHOCYTES % (AUTO) 5.1 % (20.0-44.0); MEAN CORPUSCULAR HGB CONC 32 g/dl (31.0-36.0); MEAN CORPUSCULAR VOLUME 93 fL (80-96); MONOCYTES # (AUTO) 0.8 K/uL (0.1-1.30); MONOCYTES % (AUTO) 5.2 % (2.0-12.0); NEUTROPHILS # (AUTO) 13.9 K/uL (1.8-8.9); NEUTROPHILS % (AUTO) 88.4 % (43.0-81.0); PLATELET COUNT (AUTO) 150 K/uL (150-450); RED BLOOD CELL COUNT(AUTO) 4.17 MIL/uL (4.5-6.0); WHITE BLOOD COUNT (AUTO) 15.7 K/uL (4.3-11.0)
[2022-05-12 06:22] LABS: CALCIUM, SERUM 9.7 mg/dL (8.5-10.1); POTASSIUM 4.8 mmol/L (3.5-5.1)
[2022-05-12 07:19] LABS: CREATININE 8.3 mg/dL (0.6-1.3)
[2022-05-12 08:00] VITALS: BP 134/74
[2022-05-12] MEDS: PIPERACILLIN /TAZOBACTAM 2.25 G in IV D5W 50 ML IV SCH ×3 (08:00→23:20)
[2022-05-12] MEDS: GUAIFENESIN 300 MG/15 ML UDC NG SCH ×2 (08:32→20:58)
[2022-05-12] MEDS: LEVETIRACETAM SOL (5 ML) 100 MG/ML UDC NG SCH ×2 (08:33→20:59)
[2022-05-12] MEDS: LINAGLIPTIN 5 MG TABLET NG SCH (08:33)
[2022-05-12] MEDS: NIFEdipine (10MG) 10 MG CAPSULE PO SCH ×4 (08:33→20:59)
[2022-05-12] MEDS: PANTOPRAZOLE 40 MG/PACK PACK NG SCH (08:33)
[2022-05-12] MEDS: ASPIRIN 81 MG TAB.CHEW NG SCH (08:34)
[2022-05-12] MEDS: QUETIAPINE FUMARATE 25 MG TABLET PO SCH ×2 (08:34→16:15)
[2022-05-12] MEDS: CLOPIDOGREL BISULFATE 75 MG TABLET NG SCH (08:34)
[2022-05-12] MEDS: GABAPENTIN 100 MG CAPSULE NG SCH ×2 (08:34→13:16)
[2022-05-12] MEDS: FUROSEMIDE 20 MG TABLET NG SCH (08:34)
[2022-05-12] MEDS: METOPROLOL TARTRATE 25 MG TABLET NG SCH ×2 (08:34→16:15)
[2022-05-12] MEDS: hydrALAZINE HCL 50 MG TABLET NG SCH ×3 (08:35→16:15)
[2022-05-12] MEDS: Z GUARD REMEDY 4 OZ OINT TP SCH ×2 (08:36→20:59)
[2022-05-12 12:00] VITALS: BP 132/92
[2022-05-12 16:00] VITALS: BP 94/56
--- NOTE | 2022-05-12 19:00 | NUR ---
RN CLOSING NOTES PATIENT LAYING IN BED, A/OX 1, PATIENT IS BLIND, TOLERATING WELL ON ROOM AIR WITH NO S/S RESPIRATORY DISTRESS. NO COMPLAINTS OF PAIN OR DISCOMFORT AT THIS TIME. NG TUBE IN PLACE WITH NEPHRO 1.8 @ 40 ML/HR. TELE MONITOR IN PLACE READING AFIB/A FLUTTER 68. NATHALIA # 20 G SL CLEAN, INTACT, AND FLUSHING WELL. R CHEST WALL PERMACATH IN PLACE HD DONE TODAY WITH 2000 CC OUTPUT, INTACT WITH NO S/S INFECTION. SAFETY MEASURES IN PLACE: BED IN LOWEST LOCKED POSITION, SIDE RAILS UP X 2, CALL LIGHT WITHIN REACH. ALL NEEDS MET. WILL ENDORSE TO TABULATING MACHINE MECHANIC FOR LISA.
[2022-05-12 20:00] VITALS: BP 122/57
[2022-05-12] MEDS: ATORVASTATIN 40 MG TABLET NG SCH (21:16)
--- NOTE | 2022-05-12 22:11 | NUR ---
RN opening notes Pt is resting in bed comfortably. Pt is alert and orientedX1. On 3 L NC. No SOB. No S/s of distress noted. Tele monitor showed afib controlled. Ngtube on R nares is inplaced, running nephro @ 40 ml/hr. 0 residual. R chestwall is inplaced. IV site at [facility] is clean, intact and flushes well. Safety precautions is maintained. Bed at low position, brakes locked, bed alarm is on, side rails upX3, hob elevated and call light is within reach. will continue to monitor.
[2022-05-13] VITALS: BP 142/53
[2022-05-13] MEDS: BLOOD SUGAR DIAGNOSTIC 1 EACH STRIP IN SCH ×4 (00:59→18:01)
[2022-05-13] MEDS: INSULIN REGULAR, HUMAN 100 UNIT/ML 3 ML VIAL SQ PRN ×3 (01:01→12:46)
[2022-05-13] MEDS: NEPRO 1,000 ML BOTTLE GT PRN (02:13)
[2022-05-13 04:00] VITALS: BP 145/94
[2022-05-13 06:42] LABS: BASOPHILS % (AUTO) 0.2 % (0.0-2.0); HEMATOCRIT 43 % (39-51); HEMOGLOBIN 13.1 g/dL (13.5-17.5); LYMPHOCYTES # (AUTO) 0.6 K/uL (0.8-4.8); LYMPHOCYTES % (AUTO) 2.4 % (20.0-44.0); MEAN CORPUSCULAR HGB CONC 31 g/dl (31.0-36.0); MEAN CORPUSCULAR VOLUME 95 fL (80-96); MONOCYTES # (AUTO) 0.9 K/uL (0.1-1.30); NEUTROPHILS # (AUTO) 22.3 K/uL (1.8-8.9); NEUTROPHILS % (AUTO) 93.4 % (43.0-81.0); PLATELET COUNT (AUTO) 166 K/uL (150-450); RED BLOOD CELL COUNT(AUTO) 4.49 MIL/uL (4.5-6.0); WHITE BLOOD COUNT (AUTO) 23.8 K/uL (4.3-11.0)
[2022-05-13 06:55] LABS: CALCIUM, SERUM 9.7 mg/dL (8.5-10.1); CREATININE 6.7 mg/dL (0.6-1.3)
[2022-05-13] MEDS: PIPERACILLIN /TAZOBACTAM 2.25 G in IV D5W 50 ML IV SCH ×2 (07:16→15:17)
[2022-05-13 08:00] VITALS: BP 150/79
[2022-05-13] MEDS ORDERED: VANCOMYCIN 1 GM in IV D5W 250ml IV ONE (09:00)
[2022-05-13] MEDS: GUAIFENESIN 300 MG/15 ML UDC NG SCH ×2 (09:36→21:17)
[2022-05-13] MEDS: LEVETIRACETAM SOL (5 ML) 100 MG/ML UDC NG SCH ×2 (09:36→21:17)
[2022-05-13] MEDS: Z GUARD REMEDY 4 OZ OINT TP SCH ×2 (09:36→21:17)
[2022-05-13] MEDS: PANTOPRAZOLE 40 MG/PACK PACK NG SCH (09:37)
[2022-05-13] MEDS: METOPROLOL TARTRATE 25 MG TABLET NG SCH ×2 (09:37→17:56)
[2022-05-13] MEDS: ASPIRIN 81 MG TAB.CHEW NG SCH (09:37)
[2022-05-13] MEDS: FUROSEMIDE 20 MG TABLET NG SCH (09:37)
[2022-05-13] MEDS: NIFEdipine (10MG) 10 MG CAPSULE PO SCH ×4 (09:37→21:00)
[2022-05-13] MEDS: CLOPIDOGREL BISULFATE 75 MG TABLET NG SCH (09:37)
[2022-05-13] MEDS: hydrALAZINE HCL 50 MG TABLET NG SCH ×3 (09:38→18:00)
[2022-05-13] MEDS: QUETIAPINE FUMARATE 25 MG TABLET PO SCH ×2 (09:38→18:01)
[2022-05-13] MEDS: LINAGLIPTIN 5 MG TABLET NG SCH (09:38)
--- NOTE | 2022-05-13 10:30 | NUR ---
RN notes Dr. Fleming ordered to stop the feeding for Peg placement today. Charge nurse is aware and informed.
--- NOTE | 2022-05-13 11:30 | NUR ---
RN OPENING NOTES Pt is resting in bed comfortably. Pt is alert and orientedX2. On 3 L NC. No SOB. No S/s of distress noted. Tele monitor showed aflutter hr at 75. Ngtube on R nares is inplaced. Plan for PEG placement today. R chestwall is inplaced. IV site at [facility] is clean, intact and flushes well. Kept Pt clean, dry and comfortable. All needs met and attended. Safety precautions is maintained. Bed at low position, brakes locked, bed alarm is on, side rails upX3, hob elevated and call light is within reach. Will monitor.
--- NOTE | 2022-05-13 11:44 | NUR ---
RN closing notes Pt is resting in bed comfortably. Pt is alert and orientedX1. On 3 L NC. No SOB. No S/s of distress noted. Tele monitor showed aflutter hr at 79. Ngtube on R nares is inplaced. Feeding stop at [address] Fleming ordered. Plan for PEG placement today. Routine meds were given as ordered. R chestwall is inplaced. IV site at [facility] is clean, intact and flushes well. Kept Pt clean, dry and comfortable. All needs met and attended. Safety precautions is maintained. Bed at low position, brakes locked, bed alarm is on, side rails upX3, hob elevated and call light is within reach. Will endorse to am nurse for LISA.
[2022-05-13 12:00] VITALS: BP 107/59
--- NOTE | 2022-05-13 12:14 | NUR ---
RECEIVED A CALL FROM SURGERY THAT SURGERY WILL NOT TAKE PLACE TODAY AND WILL RE-SCHEDULE. TO MONITOR.
[2022-05-13 16:00] VITALS: BP 145/83
--- NOTE | 2022-05-13 18:22 | NUR ---
Patient blood sugar was 40, IV D50% was administered per protocol. MD made aware. Will rechecked BS again. Patient is a/ox2, no signs of decrease level of consciousness.
--- NOTE | 2022-05-13 18:35 | NUR ---
RN CLOSING NOTES pt is resting in bed comfortably. Pt is alert and orientedX2. On 3 L NC. No SOB. No S/s of distress noted. Tele monitor showed aflutter hr at 73. Ngtube on R nares is inplaced. Latest BS was 153, resume feeding as per Dr. Fleming. Will be on NPO post midnight. R chestwall is inplaced. IV site at [facility] is clean, intact and flushes well. Kept Pt clean, dry and comfortable. All needs met and attended. Safety precautions is maintained. Bed at low position, brakes locked, bed alarm is on, side rails upX3, hob elevated and call light is within reach. Endorsed to incoming Nurse.
--- NOTE | 2022-05-13 19:47 | NUR ---
RN OPENING NOTES RECEIVED PT IN BED, ASLEEP, AWAKENS TO VERBAL STIMULI. AOx2, ABLE TO MAKE NEEDS KNOWN. ON NC 3LPM AND TOLERATING WELL. NO SOB NOTED. NO S/SX OF RESPIRATORY DISTRESS NOTED. TELE MONITOR DETECTS ATRIAL FLUTTER. IV ACCESS IN NATHALIA #22 AND RIGHT CHEST WALL PERMACATH. IV IS INTACT, PATENT, AND FLUSHING WELL. SAFETY PRECAUTIONS IN PLACE: BED IN LOWEST, LOCKED POSITION, SIDERAILS UPx2, AND BRAKES ON. TABLE AND CALL LIGHT WITHIN REACH. ALL NEEDS MET AT THIS TIME.
[2022-05-13 20:00] VITALS: BP 108/62
[2022-05-13] MEDS: ATORVASTATIN 40 MG TABLET NG SCH (21:17)
[2022-05-14] VITALS: BP 144/66
[2022-05-14] MEDS: PIPERACILLIN /TAZOBACTAM 2.25 G in IV D5W 50 ML IV SCH ×3 (00:54→16:18)
[2022-05-14] MEDS: BLOOD SUGAR DIAGNOSTIC 1 EACH STRIP IN SCH ×4 (01:09→18:07)
[2022-05-14] MEDS: INSULIN REGULAR, HUMAN 100 UNIT/ML 3 ML VIAL SQ PRN ×3 (01:09→12:41)
[2022-05-14 04:00] VITALS: BP 168/100
[2022-05-14 06:14] LABS: CALCIUM, SERUM 9.8 mg/dL (8.5-10.1); POTASSIUM 5.8 mmol/L (3.5-5.1)
--- NOTE | 2022-05-14 07:03 | NUR ---
RN CLOSING NOTES PT IN BED, ASLEEP, AWAKENS TO VERBAL STIMULI. AOx2, ABLE TO MAKE NEEDS KNOWN. ON NC 3LPM AND TOLERATING WELL. NO SOB NOTED. NO S/SX OF RESPIRATORY DISTRESS NOTED. TELE MONITOR DETECTS ATRIAL FLUTTER. IV ACCESS IN NATHALIA #22 AND RIGHT CHEST WALL PERMACATH. IV IS INTACT, PATENT, AND FLUSHING WELL. ALL ORDERS CARRID OUT. ALL NEEDS MET. PT KEPT CLEAN AND DRY. SAFETY PRECAUTIONS IN PLACE: BED IN LOWEST, LOCKED POSITION, SIDERAILS UPx2, AND BRAKES ON. TABLE AND CALL LIGHT WITHIN REACH. WILL ENDORSE TO ONCOMING SHIFT FOR LISA.
[2022-05-14 08:00] VITALS: BP 140/85
[2022-05-14] MEDS: FUROSEMIDE 20 MG TABLET NG SCH (09:00)
[2022-05-14] MEDS: METOPROLOL TARTRATE 25 MG TABLET NG SCH ×2 (09:00→17:46)
[2022-05-14] MEDS: PANTOPRAZOLE 40 MG/PACK PACK NG SCH (09:00)
[2022-05-14] MEDS: GUAIFENESIN 300 MG/15 ML UDC NG SCH ×2 (09:00→21:00)
[2022-05-14] MEDS: QUETIAPINE FUMARATE 25 MG TABLET PO SCH ×2 (09:00→17:46)
[2022-05-14] MEDS: hydrALAZINE HCL 50 MG TABLET NG SCH ×3 (09:00→17:46)
[2022-05-14] MEDS ORDERED: VANCOMYCIN POST DIALYSIS 500MG IV PRN ×2 (09:00)
[2022-05-14] MEDS: CLOPIDOGREL BISULFATE 75 MG TABLET NG SCH (09:00)
[2022-05-14] MEDS: ASPIRIN 81 MG TAB.CHEW NG SCH (09:00)
[2022-05-14] MEDS: LINAGLIPTIN 5 MG TABLET NG SCH (09:00)
[2022-05-14] MEDS: LEVETIRACETAM SOL (5 ML) 100 MG/ML UDC NG SCH ×2 (09:00→21:00)
[2022-05-14] MEDS: NIFEdipine (10MG) 10 MG CAPSULE PO SCH ×4 (09:00→21:00)
--- NOTE | 2022-05-14 09:19 | NUR ---
WOUND CARE CONSULT/FOLLOW UP: PT PRESENTS WITH SACRAL DEEP TISSUE INJURY WHICH EXTENDS TO BUTTOCKS AND IS NOW IN EVOLUTION. WOUND NOTED TO BE PRESENT ON ADMISSION. RECOMMENDATIONS MADE FOR SKIN PROTECTION AND WOUND CARE. DISCUSSED WITH NURSING STAFF. DR HILARIA HAYS CALLED FOR SURGICAL CONSULT. IN AGREEMENT WITH PLAN OF CARE.
[2022-05-14] MEDS: Z GUARD REMEDY 4 OZ OINT TP SCH ×2 (10:15→21:43)
[2022-05-14 12:00] VITALS: BP 154/86
[2022-05-14] MEDS: THERAHONEY GEL 1.5 OZ TUBE TP SCH (12:39)
[2022-05-14 13:31] LABS: BASOPHILS % (AUTO) 0.2 % (0.0-2.0); EOSINOPHILS % (AUTO) 0.3 % (0.0-6.0); HEMATOCRIT 39 % (39-51); HEMOGLOBIN 12.4 g/dL (13.5-17.5); LYMPHOCYTES # (AUTO) 0.4 K/uL (0.8-4.8); LYMPHOCYTES % (AUTO) 2.5 % (20.0-44.0); MEAN CORPUSCULAR HGB CONC 32 g/dl (31.0-36.0); MEAN CORPUSCULAR VOLUME 92 fL (80-96); MONOCYTES # (AUTO) 0.7 K/uL (0.1-1.30); MONOCYTES % (AUTO) 5.1 % (2.0-12.0); NEUTROPHILS # (AUTO) 12.9 K/uL (1.8-8.9); NEUTROPHILS % (AUTO) 91.9 % (43.0-81.0); PLATELET COUNT (AUTO) 166 K/uL (150-450); RED BLOOD CELL COUNT(AUTO) 4.25 MIL/uL (4.5-6.0); WHITE BLOOD COUNT (AUTO) 14.1 K/uL (4.3-11.0)
[2022-05-14 16:00] VITALS: BP 144/89
--- NOTE | 2022-05-14 16:35 | NUR ---
RN NOTES - CALLED DR GASPAR TO CHECK FOR THE G-TUBE PLACEMENT SURGERY, SAID NOT TONIGHT, TO RESUME FEEDING AND DO NPO POST MIDNIGHT. CHARGE NURSE AWARE.
--- NOTE | 2022-05-14 18:30 | NUR ---
RN NOTES - NG TUBE CLOGGED, TRIED TO FLUSH, CHARGE NURSE BILL ASSISTED, TRIED TO USE DECLOGGER BUT DIDNT WORK. WILL ENDORSE TO THE COTTON WRINGER NURSE.
--- NOTE | 2022-05-14 19:25 | NUR ---
REFERRAL RN OPENING NOTE PATIENT AWAKE IN BED, LETHARGIC, AO X 1, AWARE OF SELF ONLY, PATIENT IS ON 4 LPM OXYGEN, TOLERATING WELL AT 94% SPO2. NO RESPIRATORY DISTRESS. HEAD OF BED ELEVATED 40% AT ALL TIMES. IV ACCESS IS AT NATHALIA, G#22, SALINE LOCKED INTACT AND PATENT, FLUSHING WELL. RCW PERMACATH, DRESSING IS C/D/I. PATIENT IS ON EXTERNAL HEART MONITOR, HEART RHYTHM IS SR WITH A-FLUTTER AND AFIB AT 103 BPM. PATIENT HAS BILATERAL SOFT ARM RESTRAINTS, CHECKED FOR SAFETY AND CIRCULATION. ALL NEEDS MET, ALL DUE MEDS GIVEN. SAFETY MEASURES IN PLACE: BED LOCKED AND AT LOWEST POSITION, RAILS UP X2. PATIENT IS BLIND, ORIENTED PATIENT TO THE CALL LIGHT. CALL LIGHT WITHIN REACH WELL. KEPT HOB ELEVATED BY 40 DEGREES. CLOGGED NGTUBE ENDORSED TO VICE PRESIDENT OF NEWS NURSE.
--- NOTE | 2022-05-14 19:30 | NUR ---
noc rn note received patient in bed. alert and oriented x2. endorsed to me with clogged ng tube [address] nare. s/s of apparent distress on 4lpm of o2 via nc, HOB 40 degrees at all times. denies pain at this time. reading st in the tele monitor with 103 bpm at this time. L. ua #22g on saline lock. patient is HD patient, noted RCW permacath in place. bila. soft wrist restraints in place. safety in place. will continue with plan of care for patient.
[2022-05-14 20:00] VITALS: BP 143/92
[2022-05-14] MEDS ORDERED: LEVETIRACETAM (500MG) 500 MG in IV NS 0.9% 100 ML IV ONE (21:00)
--- NOTE | 2022-05-14 21:07 | NUR ---
noc rn note ngt re-insertion attempted cos the last one was already clogged d/t clot in the ends of NGT. new one not in the right place hence removed. Keppra ordered as IV for now. other meds non-administered.
[2022-05-14] MEDS: ATORVASTATIN 40 MG TABLET NG SCH (22:00)
[2022-05-14] MEDS ORDERED: LEVETIRACETAM (500MG) 500 MG/5 ML VIAL IV ONE (22:12)
[2022-05-15] VITALS: BP 140/90
[2022-05-15] MEDS: INSULIN REGULAR, HUMAN 100 UNIT/ML 3 ML VIAL SQ PRN
--- NOTE | 2022-05-15 03:26 | NUR ---
noc rn note messaged net developer consultant Missy Sanchez NP regarding patient being npo. no time for peg placement just yet and patient blood sugar tends to be on the 80's. net developer consultant ordered d5 1/2 ns @75mls/hr for now for just X2 bags. order carried out.
[2022-05-15] MEDS: IV D5/0.45 NACL 1,000 ML IV PRN ×2 (03:30→12:03)
[2022-05-15 04:00] VITALS: BP 164/89
--- NOTE | 2022-05-15 04:45 | NUR ---
noc rn note bp 164/89, will not give apresoline d/t scheduled hd today @0700. patient on D5 1/2 ns just for now.
[2022-05-15 06:43] LABS: CALCIUM, SERUM 9.4 mg/dL (8.5-10.1)
[2022-05-15 06:45] LABS: BASOPHILS % (AUTO) 0.3 % (0.0-2.0); EOSINOPHILS % (AUTO) 0.1 % (0.0-6.0); HEMATOCRIT 35 % (39-51); HEMOGLOBIN 11.3 g/dL (13.5-17.5); LYMPHOCYTES # (AUTO) 0.7 K/uL (0.8-4.8); LYMPHOCYTES % (AUTO) 5.5 % (20.0-44.0); MEAN CORPUSCULAR HGB CONC 32 g/dl (31.0-36.0); MEAN CORPUSCULAR VOLUME 92 fL (80-96); MONOCYTES # (AUTO) 0.9 K/uL (0.1-1.30); MONOCYTES % (AUTO) 7.3 % (2.0-12.0); NEUTROPHILS # (AUTO) 10.9 K/uL (1.8-8.9); NEUTROPHILS % (AUTO) 86.8 % (43.0-81.0); PLATELET COUNT (AUTO) 168 K/uL (150-450); WHITE BLOOD COUNT (AUTO) 12.5 K/uL (4.3-11.0)
[2022-05-15] MEDS: BLOOD SUGAR DIAGNOSTIC 1 EACH STRIP IN SCH ×4 (06:46→17:29)
--- NOTE | 2022-05-15 07:02 | NUR ---
noc rn closing patient in bed with eyes closed, patient barely slept. a/ox2. no s/s of apparent distress on 3pm of o2 via nc saturating 98%. denies pain at this time. IV D5 1/2 ns running @75mls/hr. reading a-flutter/ a-fib this am with 82 bpm. bila. soft wrist restraints still in place. needs attended. will endorse to morning shift rn for continuity of patient care.
[2022-05-15 07:13] LABS: CREATININE 10.4 mg/dL (0.6-1.3)
--- NOTE | 2022-05-15 07:31 | NUR ---
noc rn closing needs attended. report given to SAMARA White for continuity of patient care.
[2022-05-15] MEDS: CLOPIDOGREL BISULFATE 75 MG TABLET NG SCH (08:24)
[2022-05-15] MEDS: ASPIRIN 81 MG TAB.CHEW NG SCH (08:24)
[2022-05-15] MEDS: hydrALAZINE HCL 50 MG TABLET NG SCH ×3 (08:24→16:09)
[2022-05-15] MEDS: METOPROLOL TARTRATE 25 MG TABLET NG SCH ×2 (08:24→16:09)
[2022-05-15] MEDS: FUROSEMIDE 20 MG TABLET NG SCH (08:24)
[2022-05-15] MEDS: LINAGLIPTIN 5 MG TABLET NG SCH (08:25)
[2022-05-15] MEDS: PANTOPRAZOLE 40 MG/PACK PACK NG SCH (08:25)
[2022-05-15] MEDS: GUAIFENESIN 300 MG/15 ML UDC NG SCH ×2 (08:25→21:00)
[2022-05-15] MEDS: QUETIAPINE FUMARATE 25 MG TABLET PO SCH ×2 (08:25→16:10)
[2022-05-15] MEDS: NIFEdipine (10MG) 10 MG CAPSULE PO SCH ×4 (08:25→21:00)
[2022-05-15] MEDS: LEVETIRACETAM SOL (5 ML) 100 MG/ML UDC NG SCH ×2 (08:38→21:00)
[2022-05-15] MEDS: PIPERACILLIN /TAZOBACTAM 2.25 G in IV D5W 50 ML IV SCH ×3 (09:36→21:51)
[2022-05-15] MEDS: Z GUARD REMEDY 4 OZ OINT TP SCH ×2 (09:37→21:50)
[2022-05-15] MEDS: THERAHONEY GEL 1.5 OZ TUBE TP SCH (09:37)
[2022-05-15] MEDS ORDERED: DILTIAZEM HCL 25 MG IV IV STA (16:56)
--- NOTE | 2022-05-15 17:29 | NUR ---
RN NOTE K+ 6.0, BUN 151, CREA 10.4 - PATIENT DID NOT FINISH DIALYSIS D/T HE SUDDENLY BECAME UNCONTROLLED AFIB, 1L OUT. PT THREW UP A LOT OF SECRETIONS AN HOUR AFTER HD, SUCTIONED. LATER THIS AFTERNOON PT BECAME MORE UNCONTROLLED. DR. BAPTISTE WAS INFORMED AND ORDERED PT TO BE TRANSFERRED TO [facility]. HE ALSO ORDERED CARDIZEM IV PUSH, AMIODARONE BOLUS AND AND DRIP. PER CHARGE NURSE, PEG PLACEMENT WILL HAPPEN TONIGHT WITH DR. GASPAR. COSNENT IN THE CHART. PATIENT WAS SAFELY TRANSFERRED TO [facility]. REPORT GIVEN TO SAMARA ASIF.
[2022-05-15] MEDS ORDERED: AMIODARONE 150 MG in IV D5W 100 ML IV ONE (18:00)
[2022-05-15] MEDS: AMIODARONE 450 MG in IV D5W 241 ML IV PRN (18:25)
--- NOTE | 2022-05-15 18:31 | NUR ---
RN NOTE VITAL SIGNS 196/103 HR 121 POST 10MG CARDIZEM IVP, PRE AMIODARONE BOLUS. VS 197/93 HR 146 POST AMIODARONE BOLUS. AMIODARONE DRIP INITIATED PER PROTOCOL.
[2022-05-15] MEDS: hydrALAZINE HCL IV 20 MG VIAL IV PRN (18:46)
[2022-05-15] MEDS ORDERED: hydrALAZINE HCL IV 20 MG VIAL IV PRN ×2 (19:00→22:00)
--- NOTE | 2022-05-15 19:45 | NUR ---
[facility] RN OPENING NOTE RECEIVED PATIENT AWAKE IN BED, LETHARGIC, AO X 1, PATIENT IS ON 3 LPM OXYGEN, TOLERATING WELL AT 94% SPO2. NO RESPIRATORY DISTRESS. HEAD OF BED ELEVATED 40% AT ALL TIMES. IV ACCESS IS AT NATHALIA, G#22, RUNNING AMIO DRIP AT 1MG/MIN AND R HAND IV INTACT, PATENT AND FLUSHING WELL. NOTED WITH RCW PERMACATH, DRESSING IS C/D/I. PATIENT IS ON EXTERNAL HEART MONITOR, HEART RHYTHM IS UNCONTROLLED AFIB AT 118 BPM. PATIENT HAS BILATERAL SOFT ARM RESTRAINTS, CHECKED FOR SAFETY AND CIRCULATION. SAFETY MEASURES IN PLACE: BED LOCKED AND AT LOWEST POSITION, RAILS UP X2. CALL LIGHT WITHIN REACH WELL. WILL CONTINUE TO MONITOR CLOSELY.
[2022-05-15] MEDS ORDERED: HEPARIN SODIUM, PORCINE 5000 UNITS/1 ML VIAL IV ONE (20:00)
[2022-05-15] MEDS: HEPARIN INFUSION/D5W 500 ML IV PRN (20:43)
--- NOTE | 2022-05-15 20:57 | NUR ---
RN NOTE SPOKE TO PHARMACY LISA IN REGARDS TO [facility] COMPATIBILITY TO TRANSFUSED WITH HEPARIN OR AMIODARIONE DRIP. PER PHARMACY, OK TO TRANSFUSE WITH HEPARIN ONLY.
--- NOTE | 2022-05-15 21:43 | NUR ---
RN NOTE PT ON NPO STATUS FOR PEG PLACEMENT TONIGHT BUT CANCELED DUE TO PT UNSTABLE CONDITION WITH UNCONTROLLED AFIB ON THE MONITOR WITH BP AT 174/93, INFORMED CLAIM INVESTIGATOR , ORDERED FOR HYDRALAZINE 10 MG IV Q8HRS PRN AND OK TO HOLD PO MEDS FOR NOW, AM PROVIDER WILL FURTHER ASSESS. ORDER TAKEN AND CARRIED OUT.
[2022-05-15] MEDS ORDERED: PIPERACILLIN /TAZOBACTAM 2.25 G VIAL IV ONE (21:49)
[2022-05-15] MEDS: ATORVASTATIN 40 MG TABLET NG SCH (21:53)
[2022-05-16] VITALS: BP 147/84
[2022-05-16] MEDS: IV D5/0.45 NACL 1,000 ML IV PRN (00:21)
[2022-05-16] MEDS: BLOOD SUGAR DIAGNOSTIC 1 EACH STRIP IN SCH ×5 (00:23→23:41)
[2022-05-16] MEDS: AMIODARONE 450 MG in IV D5W 241 ML IV PRN (00:28)
[2022-05-16 04:00] VITALS: BP 160/82
[2022-05-16] MEDS ORDERED: PIPERACILLIN /TAZOBACTAM 2.25 G VIAL IV ONE (05:18)
[2022-05-16] MEDS: PIPERACILLIN /TAZOBACTAM 2.25 G in IV D5W 50 ML IV SCH ×3 (05:21→21:07)
[2022-05-16] MEDS: INSULIN REGULAR, HUMAN 100 UNIT/ML 3 ML VIAL SQ PRN ×2 (06:12→23:42)
--- NOTE | 2022-05-16 06:54 | NUR ---
[facility] RN CLOSING NOTE PATIENT REMAINS IN BED, AO X 1, PATIENT IS ON 3 LPM OXYGEN, TOLERATING WELL AT 94% SPO2. NO RESPIRATORY DISTRESS. HEAD OF BED ELEVATED 40% AT ALL TIMES. IV ACCESS IS AT NATHALIA, G#22, RUNNING AMIO DRIP AT 1MG/MIN AND R HAND IV RUNNING HEPARIN DRIP PRESCRIBED. NOTED WITH RCW PERMACATH, DRESSING IS C/D/I. PATIENT IS ON TELE MONITOR, HEART RHYTHM IS UNCONTROLLED AFIB AT 79 BPM. PATIENT HAS BILATERAL SOFT ARM RESTRAINTS, CHECKED FOR SAFETY AND CIRCULATION. SAFETY MEASURES IN PLACE: BED LOCKED AND AT LOWEST POSITION, RAILS UP X2. CALL LIGHT WITHIN REACH WELL. WILL ENDORSE TO AM SHIFT NURSE FOR CONTINUITY OF CARE.
--- NOTE | 2022-05-16 07:00 | NUR ---
RN NOTES RECEIVED PATIENT AWAKE IN BED, DOES NOT FOLLOW COMMAND, AWAKE, PATIENT IS ON 3 LPM OXYGEN, TOLERATING WELL O2 SAT WNL, HEAD OF BED ELEVATED , IV ACCESS IS AT NATHALIA, G#22, RUNNING AMIO DRIP AT .05 MG/MIN AND R HAND IV INTACT, PATENT AND FLUSHING WELL. NOTED WITH RCW PERMACATH, DRESSING IS C/D/I. ON TELE HEART RHYTHM IS UNCONTROLLED AFIB , PATIENT HAS BILATERAL SOFT ARM RESTRAINTS, CHECKED FOR SAFETY AND CIRCULATION. SAFETY MEASURES IN PLACE: BED LOCKED AND AT LOWEST POSITION, RAILS UP X2. CALL LIGHT WITHIN EASY REACH . BED LOCKED AND IN LOWEST POSITION, WILL CONTINUE TO MONITOR CLOSELY. Addendum: 05/16/22 at 0748 by ALEXANDER VARGAS RN CORRECTION , PT FOLLOWS COMMAND
[2022-05-16 08:00] VITALS: BP 180/89
[2022-05-16] MEDS: QUETIAPINE FUMARATE 25 MG TABLET PO SCH ×3 (08:29→17:00)
[2022-05-16] MEDS: PANTOPRAZOLE 40 MG/PACK PACK NG SCH ×2 (08:29→09:00)
[2022-05-16] MEDS: LEVETIRACETAM SOL (5 ML) 100 MG/ML UDC NG SCH ×4 (08:29→21:09)
[2022-05-16] MEDS: METOPROLOL TARTRATE 25 MG TABLET NG SCH ×2 (08:30→17:00)
[2022-05-16] MEDS: ASPIRIN 81 MG TAB.CHEW NG SCH ×2 (08:30→09:00)
[2022-05-16] MEDS: FUROSEMIDE 20 MG TABLET NG SCH ×2 (08:30→09:00)
[2022-05-16] MEDS: CLOPIDOGREL BISULFATE 75 MG TABLET NG SCH ×2 (08:30→09:00)
[2022-05-16] MEDS: LINAGLIPTIN 5 MG TABLET NG SCH ×2 (08:31→09:00)
[2022-05-16] MEDS: Z GUARD REMEDY 4 OZ OINT TP SCH ×2 (08:31→21:10)
[2022-05-16] MEDS: GUAIFENESIN 300 MG/15 ML UDC NG SCH ×4 (08:31→21:10)
[2022-05-16] MEDS: hydrALAZINE HCL 50 MG TABLET NG SCH ×4 (08:31→17:00)
[2022-05-16] MEDS: THERAHONEY GEL 1.5 OZ TUBE TP SCH (08:32)
[2022-05-16] MEDS: NIFEdipine (10MG) 10 MG CAPSULE PO SCH ×5 (09:00→21:08)
[2022-05-16] MEDS: hydrALAZINE HCL IV 20 MG VIAL IV PRN ×2 (09:19→21:33)
[2022-05-16 12:00] VITALS: BP_SYST 147; BP_SYST 160; BP_DIAS 78; BP_DIAS 84
[2022-05-16 12:05] LABS: CALCIUM, SERUM 8.9 mg/dL (8.5-10.1); POTASSIUM 4.3 mmol/L (3.5-5.1)
[2022-05-16 12:14] LABS: CREATININE 8.3 mg/dL (0.6-1.3)
[2022-05-16] MEDS: IV D5/ 0.9% NACL 1,000 ML IV PRN (14:14)
--- NOTE | 2022-05-16 15:00 | NUR ---
RN NOTES PT RECEIVED HD , TOLERATED WELL, CONTINUE TO MONITOR
[2022-05-16 16:36] VITALS: BP 143/81
--- NOTE | 2022-05-16 18:38 | NUR ---
RN NOTES NO SIGNIFICANT CHANGES NOTED ON THIS SHIFT, PT REMAINS NPO, ON HEPARIN DRIP AT 450 U/HR , IVF INFUSING AT 70CC/HR , ON TELE SR HR IN 68 , WILL ENDORSE TO BEE WORKER NURSE FOR CONTINUITY OF CARE
--- NOTE | 2022-05-16 19:30 | NUR ---
[facility] RN OPENING NOTE RECEIVED PATIENT AWAKE IN BED, LETHARGIC, AO X 1, PATIENT ON 2 LPM OXYGEN VIA NC, TOLERATING WELL AT 99% SPO2. NO ACUTE RESPIRATORY DISTRESS NOTED AT THIS TIME. HEAD OF BED ELEVATED AT ALL TIMES. IV ACCESS IS AT NATHALIA, G#22, RUNNING D5 NS @ 70 CC/HR, R HAND IV INTACT, PATENT AND FLUSHING WELL, INFUSING HEPARIN DRIP PRESCRIBED. NOTED WITH RCW PERMACATH, DRESSING IS C/D/I. PATIENT IS ON EXTERNAL MONITOR, HEART RHYTHM IS AFIB CONTROLLED AT 76 BPM. PATIENT HAS BILATERAL SOFT WRIST RESTRAINTS, CHECKED FOR SAFETY AND CIRCULATION. ALL SAFETY MEASURES IN PLACE: BED LOCKED AND AT LOWEST POSITION, SIDE RAILS UP X2. CALL LIGHT WITHIN REACH. WILL CONTINUE TO MONITOR CLOSELY.
[2022-05-16 20:00] VITALS: BP 167/83
--- NOTE | 2022-05-16 21:00 | NUR ---
RN NOTE LATEST APTT @ 73.6 ADJUSTED HEPARIN DRIP SETTING @ 400 UNITS/HR PER DOSING ORDER.
[2022-05-16] MEDS: ATORVASTATIN 40 MG TABLET NG SCH ×2 (21:09→21:28)
--- NOTE | 2022-05-16 21:40 | NUR ---
RN NOTE PT HAS ELEVATED BP WITH SPB >160. APRESOLINE IV GIVEN ORDERED. PT IN NO ACUTE DISTRESS. WILL CONTINUE TO MONITOR.
--- NOTE | 2022-05-16 21:50 | NUR ---
RN NOTE WITHHELD ALL PO/NG MEDS. PT CURRENTLY ON NPO STATUS.
[2022-05-17] VITALS: BP 166/75
[2022-05-17] MEDS: IV D5/ 0.9% NACL 1,000 ML IV PRN ×2 (03:49→18:31)
[2022-05-17] MEDS: PIPERACILLIN /TAZOBACTAM 2.25 G in IV D5W 50 ML IV SCH ×3 (04:43→20:56)
[2022-05-17 05:00] VITALS: BP 157/91
[2022-05-17] MEDS: BLOOD SUGAR DIAGNOSTIC 1 EACH STRIP IN SCH ×4 (05:16→23:34)
[2022-05-17] MEDS: INSULIN REGULAR, HUMAN 100 UNIT/ML 3 ML VIAL SQ PRN (05:16)
--- NOTE | 2022-05-17 07:20 | NUR ---
RN NOTE RECEIVED PATIENT IN BED RESTING,ALERT ORIENTEDX1 VERBALLY RESPONSIVE ON 2LOXYGEN VIA NASAL CANNULA O2:99% IV SITE IS ON LEFT UPPER ARM AND RIGHT WRIST AND RIGHT PERMCATH FOR HD INTACT PATENT,PATIENT IS ON HEPARIN DRIP 400UNIT/HR AND ON D5NS 70CC/HR,SOFT BILATERAL RESTRAIN IN PLACE,WELL CHECK EVERY 15MINS FOR SKIN BREAKDOWN AND CIRCULATION,SAFETY MEASURE IMPLEMENT BED IN LOW POSITION AND LOCKED,HEAD OF THE BED ELEVATED CONTINUE TO MONITOR.
[2022-05-17 08:00] VITALS: BP 173/95
[2022-05-17] MEDS: Z GUARD REMEDY 4 OZ OINT TP SCH ×2 (08:38→21:09)
[2022-05-17] MEDS: hydrALAZINE HCL IV 20 MG VIAL IV PRN ×2 (08:39→19:21)
[2022-05-17] MEDS: THERAHONEY GEL 1.5 OZ TUBE TP SCH (08:54)
[2022-05-17] MEDS: LEVETIRACETAM SOL (5 ML) 100 MG/ML UDC NG SCH (09:00)
[2022-05-17] MEDS: GUAIFENESIN 300 MG/15 ML UDC NG SCH ×2 (09:00→20:55)
[2022-05-17] MEDS: LINAGLIPTIN 5 MG TABLET NG SCH (09:00)
[2022-05-17] MEDS: FUROSEMIDE 20 MG TABLET NG SCH (09:00)
[2022-05-17] MEDS: METOPROLOL TARTRATE 25 MG TABLET NG SCH ×2 (09:00→16:25)
[2022-05-17] MEDS: NIFEdipine (10MG) 10 MG CAPSULE PO SCH ×4 (09:00→20:55)
[2022-05-17] MEDS: CLOPIDOGREL BISULFATE 75 MG TABLET NG SCH (09:00)
[2022-05-17] MEDS: ASPIRIN 81 MG TAB.CHEW NG SCH (09:00)
[2022-05-17] MEDS: hydrALAZINE HCL 50 MG TABLET NG SCH ×3 (09:00→16:25)
[2022-05-17] MEDS: QUETIAPINE FUMARATE 25 MG TABLET PO SCH ×2 (09:00→16:26)
[2022-05-17] MEDS: PANTOPRAZOLE 40 MG/PACK PACK NG SCH (09:00)
[2022-05-17 12:00] VITALS: BP 155/85
--- NOTE | 2022-05-17 12:15 | NUR ---
RN NOTE PTT RESULT IS 61.1 NO CHANGE IN HEPARIN RATE 400UNIT/HR,NEXT PTT LEVEL BE TOMORROW 05/18/2022 AT 6 AM CONTINUE TO MONITOR.
[2022-05-17 13:31] LABS: CALCIUM, SERUM 8.8 mg/dL (8.5-10.1); POTASSIUM 3.9 mmol/L (3.5-5.1)
[2022-05-17 16:00] VITALS: BP 167/84
--- NOTE | 2022-05-17 18:41 | NUR ---
RN NOTE PATIENT REMAINS ALERT ORIENTED X1 VERBALLY RESPONSIVE ON 2L OXYGEN VIA NASAL CANNULA,O2:99% NO SOB NOT ACUTE DISTRESS NOTED,NPO ON HEPARIN DRIP ALL PO MEDS HELD,ON IV HYDRATION D5NS 70CC/HR KEPT CLEAN AND DRY ALL THE TIME,SOFT BILATERAL WRIST RESTRAIN IN PLACE,CHECKED EVERY 15 MINS FOR SKIN BREAKDOWN AND CIRCULATION,KEPT HEAD OF THE BED ELEVATED ALL THE TIME,ALL NEEDS MET ENDORSE NEXT COMING SHIFT FOR CONTINUATION OF CARE
[2022-05-17] MEDS ORDERED: VANCOMYCIN 1 GM in IV D5W 250ml IV ONE (19:00)
--- NOTE | 2022-05-17 19:00 | NUR ---
RN NOTE PATIENT IN BED, ON SEMI YEE'S, AO X 2-3, CROATIAN SPEAKING, FAMILY AT BEDSIDE, PER SON, PATIENT IS MORE ALERT COMPARED ON ADMISSION, IN NO ACUTE DISTRESS, ONGOING HD. SATURATION AT 97% ON 2L VIA NC, AFIB ON THE MONITOR, HR IS 86. IV LINE AT NATHALIA 22G AND R WRIST PATENT AND FLUSHING WELL, NO S/S OF INFECTION OR INFILTRATION WITH D5NS AT 70 ML/HR AND HEPARIN INFUSION AT 400 UNITS/HR. PATIENT KEPT NPO PENDING PEG PLACEMENT. SEIZURE AND SAFETY MEASURES IMPLEMENTED, BED IS LOCKED AND AT LOWEST POSITION, HOB ELEVATED, CALL LIGHT WITHIN REACH OF PATIENT. WILL CONTINUE TO MONITOR AND REASSESS.
[2022-05-17 20:00] VITALS: BP 159/94
[2022-05-17] MEDS: ATORVASTATIN 40 MG TABLET NG SCH (20:55)
[2022-05-17] MEDS: KEPPRA 500 MG in IV NS 100 ML IV SCH (20:56)
[2022-05-17] MEDS: HEPARIN INFUSION/D5W 500 ML IV PRN (21:57)
[2022-05-17] MEDS: LORAZEPAM INJ 2 MG/ML VIAL IV PRN (23:23)
[2022-05-18] VITALS: BP 140/68
[2022-05-18 04:00] VITALS: BP 120/62
[2022-05-18] MEDS: BLOOD SUGAR DIAGNOSTIC 1 EACH STRIP IN SCH ×3 (06:32→17:27)
--- NOTE | 2022-05-18 06:58 | NUR ---
RN NOTE NOTED PTT 52.4, PER PROTOCOL, NO CHANGE WITH DOSE/INFUSION RATE. HAND OFF GIVEN TO ALONZO PASCUAL.
[2022-05-18 07:02] LABS: CALCIUM, SERUM 8.6 mg/dL (8.5-10.1); CREATININE 4.9 mg/dL (0.6-1.3); POTASSIUM 3.8 mmol/L (3.5-5.1)
--- NOTE | 2022-05-18 07:10 | NUR ---
RN NOTE RECEIVED PATIENT IN BED RESTING ALERT ORIENTED X1 VERBALLY RESPONSIVE ON 3L OXYGEN VIA NASAL CANNULA,O2:99% IV SITE IS ON RIGHT WRIST AND LEFT UPPER ARM INTACT AND PATENT,RIGHT UPPER CHEST PERM CATH FOR HD DRESSING INTACT.ON IV D5NS HYDRATION 70CC/HR.SOFT BILATERAL WRIST RESTRAIN IN PLACE WILL CHECK EVERY 15MIN FOR SKIN BREAKDOWN AND CIRCULATION,HEAD OF THE BED ELEVATED,SAFETY MEASURE IMPLEMENT BED IN LOW POSITION AND LOCKED,CONTINUE TO MONITOR AND REASSESS.
[2022-05-18 08:00] VITALS: BP 131/65
[2022-05-18] MEDS: CLONIDINE HCL 0.2MG/24H PTWK 1 EA PATCH TD SCH (08:39)
[2022-05-18] MEDS: KEPPRA 500 MG in IV NS 100 ML IV SCH ×2 (08:39→21:26)
--- NOTE | 2022-05-18 08:42 | NUR ---
RN NOTE SEEN BY DR MONTE,ORDERED STOP HEPARIN NOW NOTED AND CARRIED OUT.
[2022-05-18] MEDS: FUROSEMIDE 20 MG TABLET NG SCH (08:53)
[2022-05-18] MEDS: METOPROLOL TARTRATE 25 MG TABLET NG SCH ×2 (08:53→17:00)
[2022-05-18] MEDS: hydrALAZINE HCL 50 MG TABLET NG SCH ×3 (08:53→17:00)
[2022-05-18] MEDS: ASPIRIN 81 MG TAB.CHEW NG SCH (08:53)
[2022-05-18] MEDS: CLOPIDOGREL BISULFATE 75 MG TABLET NG SCH (08:54)
[2022-05-18] MEDS: PANTOPRAZOLE 40 MG/PACK PACK NG SCH (08:54)
[2022-05-18] MEDS: GUAIFENESIN 300 MG/15 ML UDC NG SCH ×2 (08:54→21:00)
[2022-05-18] MEDS: LINAGLIPTIN 5 MG TABLET NG SCH (08:54)
[2022-05-18] MEDS: NIFEdipine (10MG) 10 MG CAPSULE PO SCH ×4 (08:54→21:00)
[2022-05-18] MEDS: QUETIAPINE FUMARATE 25 MG TABLET PO SCH ×2 (08:55→17:00)
[2022-05-18] MEDS: Z GUARD REMEDY 4 OZ OINT TP SCH ×2 (08:56→21:26)
[2022-05-18] MEDS: THERAHONEY GEL 1.5 OZ TUBE TP SCH (08:57)
[2022-05-18] MEDS: IV D5/ 0.9% NACL 1,000 ML IV PRN (11:15)
[2022-05-18 12:00] VITALS: BP 156/69
[2022-05-18 16:00] VITALS: BP 201/94
[2022-05-18] MEDS: hydrALAZINE HCL IV 20 MG VIAL IV PRN (16:07)
--- NOTE | 2022-05-18 16:10 | NUR ---
RN NOTE BP 201/96 HYDRALAZINE 20 MG PRN IV GIVEN CONTINUE TO MONITOR AND REASSESS.
[2022-05-18] MEDS: LABETALOL 20 MG/4 ML VIAL IV PRN (17:08)
--- NOTE | 2022-05-18 17:10 | NUR ---
RN NOTE BP 191/96 LABETALOL 20MG PRN GIVEN CONTINUE TO MONITOR.
--- NOTE | 2022-05-18 18:17 | NUR ---
RN NOTE BP NOW IS 158/85 HR 87 CONTINUE TO MONITOR.
--- NOTE | 2022-05-18 18:18 | NUR ---
RN NOTE PATIENT REMAINS ON ALERT ORIENTED X1 VERBALLY RESPONSIVE ON 2L OXYGEN O2:98% NO SOB NOT ACUTE DISTRESS NOTED,KEPT PATIENT NPO FOR TOMORROW PROCEDURE,KEPT CLEAN AND DRY ALL THE TIME,KEPT COMFORTABLE,KEPT HEAD OF THE BED ELEVATED WILL ENDORSE NEXT COMING SHIFT FOR CONTINUATION OF CARE
--- NOTE | 2022-05-18 19:00 | NUR ---
RN NOTE PATIENT IN BED, ON SEMI YEE'S, AO X 2, HEBREW SPEAKING, IN NO ACUTE DISTRESS, SATURATION AT 98% ON 2L VIA NC, AFIB ON THE MONITOR, HR IS 105. IV LINE AT NATHALIA 22G AND R WRIST PATENT AND FLUSHING WELL, NO S/S OF INFECTION OR INFILTRATION WITH D5NS AT 70 ML/HR. PATIENT KEPT NPO PENDING PEG PLACEMENT. SEIZURE AND SAFETY MEASURES IMPLEMENTED, BED IS LOCKED AND AT LOWEST POSITION, HOB ELEVATED, CALL LIGHT WITHIN REACH OF PATIENT. WILL CONTINUE TO MONITOR AND REASSESS.
[2022-05-18 20:00] VITALS: BP 119/80
[2022-05-18] MEDS: ATORVASTATIN 40 MG TABLET NG SCH (21:25)
[2022-05-19] VITALS: BP 181/87
[2022-05-19] MEDS: BLOOD SUGAR DIAGNOSTIC 1 EACH STRIP IN SCH ×4 (00:17→17:59)
[2022-05-19] MEDS: hydrALAZINE HCL IV 20 MG VIAL IV PRN ×4 (00:19→22:12)
[2022-05-19] MEDS: IV D5/ 0.9% NACL 1,000 ML IV PRN ×2 (01:59→20:54)
[2022-05-19 04:00] VITALS: BP 143/66
--- NOTE | 2022-05-19 07:15 | NUR ---
RN [facility] OPENING NOTES: RECEIVED PATIENT IN BED, ASLEEP BUT EASILY AROUSES TO VOICE AND SOUND. NO RESPIRATORY DISTRESS NOTED AT THIS TIME. ON OXYGEN @ 2L/MIN VIA N/C WITH OXYGEN SATURATION OF 98%. ON A-FIB WITH HR OF 100 ON TELE MONITOR. HAS IV ACCESS ON LEFT UPPER ARM WITH FLUID OF D5 NS RUNNING @ 70 ML/HR, IV SITE PATENT AND NO S/S INFILTRATION NOTED. ALSO HAS SALINE LOCK ON RIGHT WRIST, PATENT. INTACT AND FLUSHES WELL, NO S/S INFILTRATION NOTED. HAS PERMACTH ON RIGHT CHEST WALL, INTACT, DRESSING, CLEAN ND DRY. PATIENT KEPT NPO FOR PEG PLACEMENT. ALL SAFETY MEASURES IN PLACE. BED LOCKED AND IN LOWEST POSITION. CALL LIGHT WITHIN REACH. HAS RESTRAINTS ON FOR SAFETY, WILL RELEASE AND EXERCISE PER PROTOCOL, NOTED WITH GOOD HAND CIRCULATION. WILL CONTINUE TO MONITOR PATIENT THROUGHOUT SHIFT.
[2022-05-19 08:00] VITALS: BP 175/116
[2022-05-19] MEDS: KEPPRA 500 MG in IV NS 100 ML IV SCH ×2 (08:55→21:13)
[2022-05-19] MEDS: METOPROLOL TARTRATE 25 MG TABLET NG SCH ×2 (09:00→16:55)
[2022-05-19] MEDS: LINAGLIPTIN 5 MG TABLET NG SCH (09:00)
[2022-05-19] MEDS: QUETIAPINE FUMARATE 25 MG TABLET PO SCH ×2 (09:00→16:56)
[2022-05-19] MEDS: CLOPIDOGREL BISULFATE 75 MG TABLET NG SCH (09:00)
[2022-05-19] MEDS: ASPIRIN 81 MG TAB.CHEW NG SCH (09:00)
[2022-05-19] MEDS: hydrALAZINE HCL 50 MG TABLET NG SCH ×3 (09:00→16:55)
[2022-05-19] MEDS: GUAIFENESIN 300 MG/15 ML UDC NG SCH ×2 (09:00→21:00)
[2022-05-19] MEDS: FUROSEMIDE 20 MG TABLET NG SCH (09:00)
[2022-05-19] MEDS: NIFEdipine (10MG) 10 MG CAPSULE PO SCH ×4 (09:00→21:00)
[2022-05-19] MEDS: PANTOPRAZOLE 40 MG/PACK PACK NG SCH (09:00)
[2022-05-19] MEDS: Z GUARD REMEDY 4 OZ OINT TP SCH ×2 (09:09→21:13)
[2022-05-19] MEDS: THERAHONEY GEL 1.5 OZ TUBE TP SCH (09:09)
[2022-05-19 09:45] LABS: BASOPHILS # (AUTO) 0.1 K/uL (0.0-0.2); BASOPHILS % (AUTO) 0.9 % (0.0-2.0); EOSINOPHILS % (AUTO) 2.6 % (0.0-6.0); HEMATOCRIT 30 % (39-51); HEMOGLOBIN 9.5 g/dL (13.5-17.5); LYMPHOCYTES # (AUTO) 0.6 K/uL (0.8-4.8); LYMPHOCYTES % (AUTO) 6.1 % (20.0-44.0); MEAN CORPUSCULAR HGB CONC 32 g/dl (31.0-36.0); MEAN CORPUSCULAR VOLUME 92 fL (80-96); MONOCYTES # (AUTO) 0.4 K/uL (0.1-1.30); NEUTROPHILS # (AUTO) 8.6 K/uL (1.8-8.9); NEUTROPHILS % (AUTO) 86.4 % (43.0-81.0); PLATELET COUNT (AUTO) 248 K/uL (150-450); RED BLOOD CELL COUNT(AUTO) 3.24 MIL/uL (4.5-6.0)
[2022-05-19 09:57] LABS: CALCIUM, SERUM 8.7 mg/dL (8.5-10.1); CREATININE 5.5 mg/dL (0.6-1.3); POTASSIUM 3.9 mmol/L (3.5-5.1)
[2022-05-19 12:00] VITALS: BP 174/104
--- NOTE | 2022-05-19 12:00 | NUR ---
PATIENT HAD HIS HEMODIALYSIS DONE AND PER BHAKTI, DIALYSIS NURSE, THERE WAS NO FLUID REMOVED. PATIENT TOLERATED PROCEDURE WELL.
--- NOTE | 2022-05-19 15:01 | NUR ---
PATIENT WAS PICKED UP FOR HIS PEG PLACEMENT TODAY. PATIENT IN NO ACUTE DISTRESS NOTED.
[2022-05-19 16:07] VITALS: BP 158/92
--- NOTE | 2022-05-19 16:07 | NUR ---
PATIENT'S BACK FROM THE SURGERY, NOTED WITH NEW PEG-TUBE IN PLACE, ABDOMINAL BINDER CLEAN AND DRY. PATIENT HAS HIS EYES CLOSED, RESPONSIVE BUT NOTED WITH CONFUSION. NO RESPIRATORY DISTRESS NOTED. PLACED ON OXYGEN @ 2L/MIN VIA N/C WITH OXYGEN SATURATION OF 100%. V/S FOLLOWS: BP 158/92, PULSE 72, RR 20, TEMP 98.1
[2022-05-19] MEDS ORDERED: ANESTHESIA TRAY IN PYXIS 1 EA TRAY MC ONE (16:54)
--- NOTE | 2022-05-19 18:55 | NUR ---
RN [facility] CLOSING NOTES: PATIENT IN BED, ASLEEP BUT EASILY AROUSES TO VOICE AND TOUCH. NO RESPIRATORY DISTRESS NOTED THROUGHOUT SHIFT. ON A-FIB WITH HR OF 98 ON TELE MONITOR. IV SITE ON LEFT UPPER ARM INTACT DRAINING WITH D5NS @ 70 ML/HR, NO S/S INFILTRATION NOTED. PEG TUBE INTACT, NO BLEEDING NOTED ON THE SITE. ALL NEEDS MET AND ANTICIPATED. WILL ENDORSE TO NEXT SHIFT NURSE FOR CONTINUITY OF CARE.
--- NOTE | 2022-05-19 19:00 | NUR ---
RN NOTE PATIENT IN BED, ON SEMI YEE'S, AO X 2, INDONESIAN SPEAKING, IN NO ACUTE DISTRESS, SATURATION AT 95 ON 2L VIA NC, AFIB ON THE MONITOR, HR IS 93. IV LINE AT NATHALIA 22G AND R WRIST PATENT AND FLUSHING WELL, NO S/S OF INFECTION OR INFILTRATION WITH D5NS AT 70 ML/HR. S/P PEG PLACEMENT TODAY, TO START TUBE FEEDING IN AM. B SOFT WRIST RESTRAINTS IN PLACE, SKIN AND CIRCULATION ARE WNL. PATIENT KEPT NPO PENDING PEG PLACEMENT. SEIZURE AND SAFETY MEASURES IMPLEMENTED, BED IS LOCKED AND AT LOWEST POSITION, HOB ELEVATED, CALL LIGHT WITHIN REACH OF PATIENT. WILL CONTINUE TO MONITOR AND REASSESS.
[2022-05-19] MEDS: ATORVASTATIN 40 MG TABLET NG SCH (21:12)
[2022-05-19 22:00] VITALS: BP 165/90
[2022-05-20] VITALS (7 sets, daily range): BP systolic 105–198; BP diastolic 59–100
[2022-05-20] MEDS: BLOOD SUGAR DIAGNOSTIC 1 EACH STRIP IN SCH ×4 (00:36→17:03)
[2022-05-20] MEDS: hydrALAZINE HCL IV 20 MG VIAL IV PRN ×2 (05:06→12:15)
--- NOTE | 2022-05-20 07:12 | NUR ---
RN [facility] OPENING NOTES: RECEIVED PATIENT IN BED, ASLEEP BUT EASILY AROUSES TO VOICE AND SOUND. NO RESPIRATORY DISTRESS NOTED AT THIS TIME. ON OXYGEN @ 1L/MIN VIA N/C WITH OXYGEN SATURATION OF 96%. ON TELE MONITOR. HAS IV ACCESS ON LEFT UPPER ARM WITH FLUID OF D5 NS RUNNING @ 70 ML/HR, IV SITE PATENT AND NO S/S INFILTRATION NOTED. ALSO HAS SALINE LOCK ON RIGHT WRIST, PATENT. INTACT AND FLUSHES WELL, NO S/S INFILTRATION NOTED. HAS PERMACTH ON RIGHT CHEST WALL, INTACT, DRESSING, CLEAN ND DRY. PATIENT HAS PEG TUBE FEEDING WILL RESUME TODAY. ALL SAFETY MEASURES IN PLACE. BED LOCKED AND IN LOWEST POSITION. CALL LIGHT WITHIN REACH. HAS RESTRAINTS ON FOR SAFETY, NOTED WITH GOOD HAND CIRCULATION.
[2022-05-20 08:04] LABS: BASOPHILS # (AUTO) 0.1 K/uL (0.0-0.2); BASOPHILS % (AUTO) 0.7 % (0.0-2.0); EOSINOPHILS % (AUTO) 3.4 % (0.0-6.0); HEMATOCRIT 32 % (39-51); HEMOGLOBIN 9.9 g/dL (13.5-17.5); LYMPHOCYTES # (AUTO) 0.5 K/uL (0.8-4.8); LYMPHOCYTES % (AUTO) 6.4 % (20.0-44.0); MEAN CORPUSCULAR HGB CONC 31 g/dl (31.0-36.0); MEAN CORPUSCULAR VOLUME 93 fL (80-96); MONOCYTES # (AUTO) 0.4 K/uL (0.1-1.30); MONOCYTES % (AUTO) 4.9 % (2.0-12.0); NEUTROPHILS # (AUTO) 6.9 K/uL (1.8-8.9); NEUTROPHILS % (AUTO) 84.6 % (43.0-81.0); PLATELET COUNT (AUTO) 256 K/uL (150-450); WHITE BLOOD COUNT (AUTO) 8.2 K/uL (4.3-11.0)
[2022-05-20] MEDS: KEPPRA 500 MG in IV NS 100 ML IV SCH ×2 (08:08→20:53)
[2022-05-20] MEDS: NEPRO 1,000 ML BOTTLE GT PRN (08:09)
[2022-05-20] MEDS: ASPIRIN 81 MG TAB.CHEW NG SCH (08:10)
[2022-05-20] MEDS: Z GUARD REMEDY 4 OZ OINT TP SCH ×2 (08:10→20:54)
[2022-05-20] MEDS: LINAGLIPTIN 5 MG TABLET NG SCH (08:10)
[2022-05-20] MEDS: THERAHONEY GEL 1.5 OZ TUBE TP SCH (08:10)
[2022-05-20] MEDS: GUAIFENESIN 300 MG/15 ML UDC NG SCH ×2 (08:10→20:53)
[2022-05-20] MEDS: FUROSEMIDE 20 MG TABLET NG SCH (08:11)
[2022-05-20] MEDS: hydrALAZINE HCL 50 MG TABLET NG SCH ×3 (08:11→16:32)
[2022-05-20] MEDS: CLOPIDOGREL BISULFATE 75 MG TABLET NG SCH (08:11)
[2022-05-20] MEDS: METOPROLOL TARTRATE 25 MG TABLET NG SCH ×2 (08:11→16:33)
[2022-05-20] MEDS: NIFEdipine (10MG) 10 MG CAPSULE PO SCH ×4 (08:11→20:54)
[2022-05-20] MEDS: PANTOPRAZOLE 40 MG/PACK PACK NG SCH (08:12)
[2022-05-20] MEDS: QUETIAPINE FUMARATE 25 MG TABLET PO SCH ×2 (08:12→16:33)
[2022-05-20 08:33] LABS: CALCIUM, SERUM 9.2 mg/dL (8.5-10.1); CREATININE 4.7 mg/dL (0.6-1.3); MAGNESIUM 2.2 mg/dL (1.8-2.4)
[2022-05-20] MEDS ORDERED: HEPARIN INFUSION/D5W 500 ML IV PRN (12:00)
[2022-05-20] MEDS ORDERED: AMIODARONE 150 MG in IV D5W 100 ML IV ONE (12:00)
[2022-05-20] MEDS ORDERED: AMIODARONE 450 MG in IV D5W 241 ML IV PRN (12:00)
[2022-05-20] MEDS: INSULIN REGULAR, HUMAN 100 UNIT/ML 3 ML VIAL SQ PRN ×2 (12:23→17:10)
--- NOTE | 2022-05-20 13:45 | NUR ---
RN NOTE CALLED LAB REGARDING STAT PTT. NOT DRAWN YET WILL SEND A PRODUCTION TROUBLESHOOTER
--- NOTE | 2022-05-20 15:49 | NUR ---
RN NOTE PER DR ZAID CONN TO DC FLUIDS ORDERS PLACED
--- NOTE | 2022-05-20 18:45 | NUR ---
RN CLOSING NOTES PATIENT IN BED, ASLEEP BUT EASILY AROUSES TO VOICE AND TOUCH. NO RESPIRATORY DISTRESS NOTED THROUGHOUT SHIFT. ON A-FIB WITH ON TELE MONITOR. IV SITE ON LEFT UPPER ARM INTACT DRAINING, NO S/S INFILTRATION NOTED. PEG TUBE INTACT, NO BLEEDING NOTED ON THE SITE. ALL NEEDS MET AND ANTICIPATED. WILL ENDORSE TO NEXT SHIFT NURSE FOR CONTINUITY OF CARE.
--- NOTE | 2022-05-20 19:27 | NUR ---
EQUIPMENT SCHEDULER OPENING NOTES: RECEIVED PATIENT IN BED, ASLEEP BUT EASILY AROUSES TO VOICE AND SOUND. NO RESPIRATORY DISTRESS NOTED AT THIS TIME. ON OXYGEN @ 1L/MIN VIA N/C WITH OXYGEN SATURATION OF 96%. ON TELE MONITOR. HAS IV ACCESS ON LEFT UPPER ARM WITH FLUID OF NS RUNNING TKO, IV SITE PATENT AND NO S/S INFILTRATION NOTED. ALSO HAS SALINE LOCK ON RIGHT WRIST, PATENT. INTACT AND FLUSHES WELL, NO S/S INFILTRATION NOTED. HAS PERMACATH ON RIGHT CHEST WALL, INTACT, DRESSING, CLEAN ND DRY. PATIENT HAS PEG TUBE FEEDING RUNNING NEPHRO @ 40 ML/HR, ALL SAFETY MEASURES IN PLACE. BED LOCKED AND IN LOWEST POSITION. CALL LIGHT WITHIN REACH. WILL CONTINUE TO MONITOR THROUGHOUT THE SHIFT.
[2022-05-20] MEDS: ATORVASTATIN 40 MG TABLET NG SCH (21:00)
[2022-05-21] VITALS: BP 141/74
--- NOTE | 2022-05-21 | NUR ---
RN NOTE BS CHECKED AT 100 MG/DL, NO COVERAGE GIVEN PER SLIDING SCALE. WILL CONT TO MONITOR.
[2022-05-21] MEDS: INSULIN REGULAR, HUMAN 100 UNIT/ML 3 ML VIAL SQ PRN ×3 (00:34→12:05)
[2022-05-21] MEDS: BLOOD SUGAR DIAGNOSTIC 1 EACH STRIP IN SCH ×4 (00:34→17:41)
[2022-05-21] MEDS: ALPRAZOLAM 1 MG TABLET NG PRN ×2 (00:55→21:28)
--- NOTE | 2022-05-21 02:45 | NUR ---
RN NOTE IV ACCESS ON R WRIST #20G DISLODGED.
[2022-05-21 04:00] VITALS: BP 147/70
--- NOTE | 2022-05-21 06:00 | NUR ---
RN NOTE BS CHECKED AT 130 MG/DL, NO COVERAGE GIVEN PER SLIDING SCALE. WILL CONT TO MONITOR.
--- NOTE | 2022-05-21 06:49 | NUR ---
[facility] RN CLOSING NOTES: PATIENT REMAINS IN BED, ASLEEP BUT EASILY AROUSES TO VOICE AND SOUND. NO RESPIRATORY DISTRESS NOTED AT THIS TIME. ON OXYGEN @ 1L/MIN VIA N/C WITH OXYGEN SATURATION OF 96%. ON TELE MONITOR. HAS IV ACCESS ON LEFT UPPER ARM WITH FLUID OF NS RUNNING TKO, IV SITE PATENT AND NO S/S INFILTRATION NOTED. HAS PERMACATH ON RIGHT CHEST WALL, INTACT, DRESSING, CLEAN AND DRY. PATIENT HAS PEG TUBE FEEDING RUNNING NEPHRO @ 40 ML/HR, ALL DUE MEDS GIVEN, KEPT DRY AND CLEAN, ALL SAFETY MEASURES IN PLACE. BED LOCKED AND IN LOWEST POSITION. CALL LIGHT WITHIN REACH. WILL ENDORSE TO AM SHIFT NURSE FOR CONTINUITY OF CARE.
--- NOTE | 2022-05-21 07:10 | NUR ---
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 NO RESPIRATORY DISTRESS NOTED AT THIS TIME. ON OXYGEN @ 1L/MIN VIA N/C WITH OXYGEN SATURATION OF 96%. ON TELE MONITOR. HAS IV ACCESS ON LEFT UPPER ARM WITH FLUID OF NS RUNNING TKO, IV SITE PATENT AND NO S/S INFILTRATION NOTED., PATENT. INTACT AND FLUSHES WELL, NO S/S INFILTRATION NOTED. HAS PERMACATH ON RIGHT CHEST WALL, INTACT, DRESSING, CLEAN ND DRY. PATIENT HAS PEG TUBE FEEDING RUNNING NEPHRO @ 40 ML/HR, ALL SAFETY MEASURES IN PLACE. BED LOCKED AND IN LOWEST POSITION. CALL LIGHT WITHIN REACH. WILL CONTINUE TO MONITOR THROUGHOUT THE SHIFT.
[2022-05-21 08:00] VITALS: BP 153/69
[2022-05-21] MEDS: LEVETIRACETAM SOL (5 ML) 100 MG/ML UDC PO SCH ×2 (09:23→21:26)
[2022-05-21] MEDS: GUAIFENESIN 300 MG/15 ML UDC NG SCH ×2 (09:23→21:25)
[2022-05-21] MEDS: PANTOPRAZOLE 40 MG/PACK PACK NG SCH (09:24)
[2022-05-21] MEDS: NIFEdipine (10MG) 10 MG CAPSULE PO SCH ×4 (09:24→21:26)
[2022-05-21] MEDS: CLOPIDOGREL BISULFATE 75 MG TABLET NG SCH (09:24)
[2022-05-21] MEDS: METOPROLOL TARTRATE 25 MG TABLET NG SCH ×2 (09:25→16:43)
[2022-05-21] MEDS: QUETIAPINE FUMARATE 25 MG TABLET PO SCH ×2 (09:25→16:44)
[2022-05-21] MEDS: FUROSEMIDE 20 MG TABLET NG SCH (09:26)
[2022-05-21] MEDS: LINAGLIPTIN 5 MG TABLET NG SCH (09:29)
[2022-05-21] MEDS: APIXABAN 2.5 MG TABLET PO SCH ×2 (09:29→16:45)
[2022-05-21] MEDS: THERAHONEY GEL 1.5 OZ TUBE TP SCH (09:31)
[2022-05-21] MEDS: Z GUARD REMEDY 4 OZ OINT TP SCH ×2 (09:31→21:28)
[2022-05-21] MEDS: hydrALAZINE HCL 50 MG TABLET NG SCH ×3 (09:44→16:42)
[2022-05-21 12:00] VITALS: BP 145/60
--- NOTE | 2022-05-21 15:47 | NUR ---
RN NOTES: SPOKE TO DR RAY PT WAS A FLUTTER SINCE THIS MORNING AND BECAME A FIB AT 1431 WITH ORDER OF AMIODARONE 200 MG BID PO.
[2022-05-21 16:00] VITALS: BP 144/81
--- NOTE | 2022-05-21 16:20 | NUR ---
RN NOTES: SPOKE TO DR RAY PT COMPLAIN OF CHEST PAIN WITH ORDER OF AMIODARONE DRIP 150 BOLUS NOW
[2022-05-21] MEDS ORDERED: AMIODARONE 150 MG in IV D5W 100 ML IV ONE (17:00)
--- NOTE | 2022-05-21 19:09 | NUR ---
RN CLOSING NOTES PATIENT IN BED, ASLEEP BUT EASILY AROUSES TO VOICE AND TOUCH. NO RESPIRATORY DISTRESS NOTED THROUGHOUT SHIFT. ON A-FIB WITH ON TELE MONITOR. IV SITE ON LEFT UPPER ARM INTACT DRAINING, NO S/S INFILTRATION NOTED. PEG TUBE INTACT, NO BLEEDING NOTED ON THE SITE. ALL NEEDS MET AND ANTICIPATED. 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
--- NOTE | 2022-05-21 19:30 | NUR ---
PT AWAKEIN BED, A/O XX1, NOT IN RESPIRATORY DISTRESS. TELE MONITOR IN PLACE. IV SITE ON LEFT UPPER ARM ON SALINE LOCK. PEG TUBE INFUSING NEPRO AT 40 ML/HR. SAFETY MEASURES IN PLACE. WILL CONTINUE PLAN OF CARE.
[2022-05-21 20:00] VITALS: BP 150/70
[2022-05-21] MEDS: NEPRO 1,000 ML BOTTLE GT PRN (20:00)
[2022-05-21] MEDS: ATORVASTATIN 40 MG TABLET NG SCH (21:27)
[2022-05-21] MEDS: AMIODARONE HCL 200 MG TABLET PO SCH (21:27)
[2022-05-22] VITALS: BP 149/73
[2022-05-22] MEDS: BLOOD SUGAR DIAGNOSTIC 1 EACH STRIP IN SCH ×4 (00:53→17:45)
[2022-05-22] MEDS: INSULIN REGULAR, HUMAN 100 UNIT/ML 3 ML VIAL SQ PRN ×2 (01:04→05:01)
[2022-05-22 04:00] VITALS: BP 151/71
--- NOTE | 2022-05-22 06:25 | NUR ---
PT ASLEEP IN BED, EASILY AWAKEN. A/O X1, NOT IN RESPIRATORY DISTRESS. TELE MONITOR IN PLACE. IV SITE ON LEFT UPPER ARM ON SALINE LOCK. PEG TUBE INFUSING NEPRO AT 40 ML/HR. DUE MEDS GIVEN. NEEDS ATTENDED. SAFETY MEASURES MAINTAINED. WILL ENDORSE TO NEXT NURSE ON DUTY FOR CONTINUITY OF CARE.
--- NOTE | 2022-05-22 07:30 | NUR ---
RN NOTE RECEIVED PATIENT IN BED RESTING CONFUSED,VERBALLY RESPONSIVE ON 1L OXYGEN VIA NASAL CANNULA,O2:94% IV SITE IS ON LEFT UPPER ARM INTACT PATENT RIGHT UPPER CHEST PERM-CATH DRESSING INTACT,INCONTINENT BOWEL,ANURIC,ON G-TUBE FEEDING,NEPRO 40CC/HR CHECKED PLACEMENT IN PLACE,20CC RESIDUAL NOTED,FLUSH BACK TO G-TUBE,HEAD OF THE BED ELEVATED,SOFT BILATERAL WRIST IN PLACE WILL MONITOR EVERY 15 MINS FOR SKIN BREAKDOWN,AND CIRCULATION,SAFETY MEASURE IMPLEMENT BED IN LOW POSITION AND LOCKED CONTINUE TO MONITOR.
[2022-05-22 08:00] VITALS: BP 148/76
[2022-05-22] MEDS: GUAIFENESIN 300 MG/15 ML UDC NG SCH ×2 (08:42→21:13)
[2022-05-22] MEDS: LEVETIRACETAM SOL (5 ML) 100 MG/ML UDC PO SCH ×2 (08:42→21:12)
[2022-05-22] MEDS: METOPROLOL TARTRATE 25 MG TABLET NG SCH ×2 (08:43→17:29)
[2022-05-22] MEDS: AMIODARONE HCL 200 MG TABLET PO SCH ×2 (08:43→21:14)
[2022-05-22] MEDS: FUROSEMIDE 20 MG TABLET NG SCH (08:43)
[2022-05-22] MEDS: CLOPIDOGREL BISULFATE 75 MG TABLET NG SCH (08:44)
[2022-05-22] MEDS: hydrALAZINE HCL 50 MG TABLET NG SCH ×3 (08:44→17:24)
[2022-05-22] MEDS: QUETIAPINE FUMARATE 25 MG TABLET PO SCH ×2 (08:52→17:30)
[2022-05-22] MEDS: PANTOPRAZOLE 40 MG/PACK PACK NG SCH (08:52)
[2022-05-22] MEDS: LINAGLIPTIN 5 MG TABLET NG SCH (09:00)
[2022-05-22] MEDS: APIXABAN 2.5 MG TABLET PO SCH ×2 (09:03→17:26)
[2022-05-22] MEDS: NIFEdipine (10MG) 10 MG CAPSULE PO SCH ×4 (09:05→21:13)
[2022-05-22] MEDS: Z GUARD REMEDY 4 OZ OINT TP SCH ×2 (09:06→21:12)
[2022-05-22] MEDS: THERAHONEY GEL 1.5 OZ TUBE TP SCH (10:00)
[2022-05-22 12:00] VITALS: BP 184/82
[2022-05-22 16:00] VITALS: BP 130/71
--- NOTE | 2022-05-22 19:03 | NUR ---
RN NOTE PATIENT REMAINS CONFUSED OPEN EYES,ON 1L OXYGEN VIA NASAL CANNULA OI2:96% NO SOB NOT ACUTE DISTRESS NOTED,DIALYSIS DONE ONE LITER FLUID REMOVED,ALL DUE MEDS GIVEN MD ORDERED,KEPT CLEAN AND DRY ALL THE TIME,TURNED AND REPOSITIONED EVERY 2 HOURS,SOFT BILATERAL WRIST RESTRAINS IN PLACE CHECKED EVERY 15 MINS FOR SKIN BREAKDOWN,AND CIRCULATION ALL NEEDS MET,HEAD OF THE BED ELEVATED ALL THE TIME,ENDORSE NEXT COMING SHIFT FOR CONTINUATION OF CARE.
--- NOTE | 2022-05-22 19:10 | NUR ---
RN OPENING NOTES RECEIVED PATIENT ON BED, CONFUSED, ON NASAL CANULA @ 1 LPM, SATING AT 96%, RESPIRATORY EVEN AND UNLABORED, NO SOB NOTED. AFEBRILE. NO S/S OF DISTRESS NOTED. NOTED WITH NATHALIA # 22, FLUSHED WITH NS. NO S/S OF INFILTRATION NOTED. WITH RIGHJT CHEST WALL PERMACATH FOR HD, DRESSING INTACT NO BLEEDING NOTED AT THIS TIME. GTUBE PATENT AND INTACT VERIFIED PLACEMENT BY AUSCULTATION, NO RESIDUAL NOTED UPON ASPIRATION, RUNNING WITH NEPHRO @ 40 ML/HR X 24 HRS. HEAD OF BED KEPT ELEVATED. ON BILATERAL SOFT WRIST RESTRAINT, RELEASE AND REASSESS Q2H FOR CIRCULATION. ALL SAFETY PRECAUTION PROVIDED. BED IN LOWEST POSITION, LOCKED, BED ALARM ARMED. CALL LIGHT WITH IN REACH. CONTINUE TO MONITOR
[2022-05-22 20:00] VITALS: BP 146/110
[2022-05-22] MEDS: ATORVASTATIN 40 MG TABLET NG SCH (21:12)
[2022-05-23] VITALS: BP 157/74
[2022-05-23] MEDS: BLOOD SUGAR DIAGNOSTIC 1 EACH STRIP IN SCH ×4 (00:30→17:33)
[2022-05-23] MEDS: INSULIN REGULAR, HUMAN 100 UNIT/ML 3 ML VIAL SQ PRN ×3 (00:32→12:24)
[2022-05-23 04:00] VITALS: BP 158/72
[2022-05-23] MEDS: NEPRO 1,000 ML BOTTLE GT PRN (04:59)
[2022-05-23] MEDS: IV NS 0.9% 250 ML IV PRN (05:22)
--- NOTE | 2022-05-23 07:09 | NUR ---
RN NOTES PATIENT SLEEPING BUT AROUSE EASILY, RESPIRATORY EVEN AND UNLABORED, NO SOB NOTED. AFEBRILE. NO S/S OF DISTRESS NOTED. GTUBE PATENT AND INTACT, RUNNING WITH NEPHRO @ 40 ML/HR X 24 HRS. HEAD OF BED KEPT ELEVATED. WOUND CARE DONE, PROCEDURE TOLERATED WELL, BLOOD SUGAR CHECKED DONE INSULIN GIVEN PER SLIDING SCALE. ON BILATERAL SOFT WRIST RESTRAINT, RELEASE AND REASSESS Q2H FOR CIRCULATION. ALL DUE MEDS GIVEN. ALL SAFETY PRECAUTION PROVIDED. BED IN LOWEST POSITION, LOCKED, BED ALARM ARMED. CALL LIGHT WITH IN REACH. CONTINUE TO MONITOR
[2022-05-23 08:00] VITALS: BP 163/79
[2022-05-23] MEDS: PANTOPRAZOLE 40 MG/PACK PACK NG SCH (08:22)
[2022-05-23] MEDS: LEVETIRACETAM SOL (5 ML) 100 MG/ML UDC PO SCH ×2 (08:22→22:14)
[2022-05-23] MEDS: NIFEdipine (10MG) 10 MG CAPSULE PO SCH ×4 (08:22→22:15)
[2022-05-23] MEDS: APIXABAN 2.5 MG TABLET PO SCH (08:24)
[2022-05-23] MEDS: QUETIAPINE FUMARATE 25 MG TABLET PO SCH ×2 (08:25→16:34)
[2022-05-23] MEDS: AMIODARONE HCL 200 MG TABLET PO SCH ×2 (08:25→22:16)
[2022-05-23] MEDS: LINAGLIPTIN 5 MG TABLET NG SCH (08:26)
[2022-05-23] MEDS: METOPROLOL TARTRATE 25 MG TABLET NG SCH ×2 (08:26→16:33)
[2022-05-23] MEDS: FUROSEMIDE 20 MG TABLET NG SCH (08:26)
[2022-05-23] MEDS: hydrALAZINE HCL 50 MG TABLET NG SCH ×3 (08:26→16:34)
[2022-05-23] MEDS: CLOPIDOGREL BISULFATE 75 MG TABLET NG SCH (08:26)
[2022-05-23] MEDS: GUAIFENESIN 300 MG/15 ML UDC NG SCH ×2 (08:27→22:17)
[2022-05-23] MEDS: Z GUARD REMEDY 4 OZ OINT TP SCH ×2 (08:27→21:00)
[2022-05-23] MEDS: THERAHONEY GEL 1.5 OZ TUBE TP SCH (08:28)
[2022-05-23 12:00] VITALS: BP 157/52
[2022-05-23 14:36] LABS: BASOPHILS # (AUTO) 0.1 K/uL (0.0-0.2); BASOPHILS % (AUTO) 0.9 % (0.0-2.0); EOSINOPHILS % (AUTO) 4.8 % (0.0-6.0); HEMATOCRIT 32 % (39-51); HEMOGLOBIN 10.1 g/dL (13.5-17.5); LYMPHOCYTES # (AUTO) 0.6 K/uL (0.8-4.8); LYMPHOCYTES % (AUTO) 7.2 % (20.0-44.0); MEAN CORPUSCULAR HGB CONC 32 g/dl (31.0-36.0); MEAN CORPUSCULAR VOLUME 90 fL (80-96); MONOCYTES # (AUTO) 0.7 K/uL (0.1-1.30); MONOCYTES % (AUTO) 8.8 % (2.0-12.0); NEUTROPHILS # (AUTO) 6.2 K/uL (1.8-8.9); NEUTROPHILS % (AUTO) 78.3 % (43.0-81.0); PLATELET COUNT (AUTO) 284 K/uL (150-450); RED BLOOD CELL COUNT(AUTO) 3.51 MIL/uL (4.5-6.0); WHITE BLOOD COUNT (AUTO) 7.9 K/uL (4.3-11.0)
[2022-05-23 14:47] LABS: CALCIUM, SERUM 9.2 mg/dL (8.5-10.1); CREATININE 5.2 mg/dL (0.6-1.3); PHOSPHORUS 4.4 mg/dL (2.5-4.9); POTASSIUM 3.9 mmol/L (3.5-5.1)
[2022-05-23 16:00] VITALS: BP 130/61
--- NOTE | 2022-05-23 19:12 | NUR ---
RN CLOSING NOTES PATIENT IN BED, ASLEEP BUT EASILY AROUSES TO VOICE AND TOUCH. No signs of respiratory distress. Patient now normal sinus rhythm. IV SITE ON LEFT UPPER ARM INTACT and patent, NO S/S INFILTRATION NOTED. PEG TUBE INTACT, NO BLEEDING NOTED ON THE SITE. ALL NEEDS MET AND ANTICIPATED. Thoracentesis scheduled for tomorrow 05/24. Consent was received over the phone by the sister "Lakesha". 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
--- NOTE | 2022-05-23 19:30 | NUR ---
RN OPENING NOTES RECEIVED PATIENT IN BED, AWAKE, A/O X 1-2, WITH PERIODS OF CONFUSION. ON NASAL CANNULA @ 1 LPM, SATING AT 93%, RESPIRATION IS EVEN AND UNLABORED, NO SOB NOTED. AFEBRILE. NO S/SX OF ACUTE RESPI DISTRESS NOTED. TELE MONITOR SHOWS SR WITH HR IN THE 60s. IV ACCESS IS IN NATHALIA #[id number], PATENT AND INTACT. RUNNING NS TKO. WITH RIGHT CHEST WALL PERMACATH FOR HD, DRESSING INTACT NO BLEEDING NOTED. ON BILATERAL SOFT WRIST RESTRAINT, RELEASE AND REASSESS Q2H FOR CIRCULATION. GTUBE IS PRESENT, PATENT AND INTACT VERIFIED PLACEMENT BY AUSCULTATION, NO RESIDUAL NOTED UPON ASPIRATION, RUNNING NEPRO @ 40 ML/HR X 24 HRS. HEAD OF THE BED KEPT ELEVATED. ALL SAFETY PRECAUTIONS IN PLACE: BED IN LOWEST POSITION, LOCKED, BED ALARM ON. CALL LIGHT WITHIN REACH. WILL CONTINUE TO MONITOR.
[2022-05-23 20:00] VITALS: BP 135/68
[2022-05-23] MEDS: ATORVASTATIN 40 MG TABLET NG SCH (22:16)
[2022-05-24] VITALS: BP 156/71
[2022-05-24] MEDS: BLOOD SUGAR DIAGNOSTIC 1 EACH STRIP IN SCH ×3 (00:05→12:11)
[2022-05-24] MEDS: INSULIN REGULAR, HUMAN 100 UNIT/ML 3 ML VIAL SQ PRN ×2 (00:06→05:49)
[2022-05-24] MEDS: IV NS 0.9% 250 ML IV PRN (02:54)
[2022-05-24 04:00] VITALS: BP 185/87
[2022-05-24] MEDS: hydrALAZINE HCL IV 20 MG VIAL IV PRN (04:11)
--- NOTE | 2022-05-24 06:17 | NUR ---
RN NOTE NO SIGNIFICANT CHANGE T/O THE NIGHT. PT IS SR ON TELE MONITOR. ALL DUE MEDS GIVEN. NEEDS ATTENDED TO. PM CARE DONE. TURNED AND REPOSITIONED. WILL ENDORSE TO AM SHIFT NURSE FOR LISA.
[2022-05-24 07:13] LABS: PHOSPHORUS 5.2 mg/dL (2.5-4.9)
--- NOTE | 2022-05-24 07:30 | NUR ---
OPENING NOTE PT IS IN BED RESTING WITH EYES CLOSED. BREATHING IS EVEN AND UNLABORED NO S/S OF ACUTE DISTRESS. PT ABLE TO ANSWER QUESTIONS AND FOLLOW COMMANDS. ALL LINES FLUSHED ANT PATENT NO S/S OF INFILTRATION. PT AFEBRILE FEW SECRETIONS. SCHEDULED FOR THORACENTESIS OF THE RIGHT LUNG CONCENT FORM SIGNED AND IN THE CHART. HOB ELEVATED TO LOW FOWLERS BED LOCKED AND IN LOWEST POSITION.
[2022-05-24 07:53] LABS: BASOPHILS # (AUTO) 0.1 K/uL (0.0-0.2); BASOPHILS % (AUTO) 0.6 % (0.0-2.0); EOSINOPHILS % (AUTO) 3.9 % (0.0-6.0); HEMATOCRIT 32 % (39-51); HEMOGLOBIN 10.1 g/dL (13.5-17.5); LYMPHOCYTES # (AUTO) 0.9 K/uL (0.8-4.8); MEAN CORPUSCULAR HGB CONC 32 g/dl (31.0-36.0); MEAN CORPUSCULAR VOLUME 91 fL (80-96); MONOCYTES % (AUTO) 9.4 % (2.0-12.0); NEUTROPHILS # (AUTO) 8.5 K/uL (1.8-8.9); NEUTROPHILS % (AUTO) 78.1 % (43.0-81.0); PLATELET COUNT (AUTO) 313 K/uL (150-450); RED BLOOD CELL COUNT(AUTO) 3.47 MIL/uL (4.5-6.0); WHITE BLOOD COUNT (AUTO) 10.9 K/uL (4.3-11.0)
[2022-05-24 08:00] VITALS: BP 162/77
[2022-05-24] MEDS: GUAIFENESIN 300 MG/15 ML UDC NG SCH (08:44)
[2022-05-24] MEDS: LEVETIRACETAM SOL (5 ML) 100 MG/ML UDC PO SCH (08:44)
[2022-05-24] MEDS: AMIODARONE HCL 200 MG TABLET PO SCH (08:44)
[2022-05-24] MEDS: FUROSEMIDE 20 MG TABLET NG SCH (08:44)
[2022-05-24] MEDS: LINAGLIPTIN 5 MG TABLET NG SCH (08:45)
[2022-05-24] MEDS: QUETIAPINE FUMARATE 25 MG TABLET PO SCH ×2 (08:45→16:28)
[2022-05-24] MEDS: hydrALAZINE HCL 50 MG TABLET NG SCH ×3 (08:45→16:27)
[2022-05-24] MEDS: CLOPIDOGREL BISULFATE 75 MG TABLET NG SCH (08:45)
[2022-05-24] MEDS: PANTOPRAZOLE 40 MG/PACK PACK NG SCH (08:46)
[2022-05-24] MEDS: METOPROLOL TARTRATE 25 MG TABLET NG SCH ×2 (08:46→16:28)
[2022-05-24] MEDS: THERAHONEY GEL 1.5 OZ TUBE TP SCH (08:51)
[2022-05-24] MEDS: Z GUARD REMEDY 4 OZ OINT TP SCH (08:51)
[2022-05-24] MEDS: NIFEdipine (10MG) 10 MG CAPSULE PO SCH ×3 (08:58→16:29)
[2022-05-24] MEDS ORDERED: LEVE100S PO (10:01)
[2022-05-24] MEDS ORDERED: AMIO200T7 PO (10:01)
[2022-05-24] MEDS ORDERED: QUET25TA PO (10:02)
[2022-05-24] MEDS ORDERED: METO25TA20 NG (10:02)
[2022-05-24 12:00] VITALS: BP 162/77
[2022-05-24 16:00] VITALS: BP 131/67
[2022-05-24 16:29] VITALS: BP 131/67
[2022-05-29 08:06] LABS: HEPATITIS Be AB Negative (Negative)
== END 2022-05-24 17:09 | DRG 137 ==
LOC: ER 13:50 → TRANSITION 18:55 → TELE 05-04 00:47 → MED 05-04 08:30 → ICU 05-04 08:45 → TELE 05-07 15:23 → TELE-TD 05-15 17:25 → TELE1 05-20 08:55 → TELE-TD 05-20 12:18 → TELE1 05-20 18:45 → TELE-TD 05-20 20:28 → TELE1 05-21 06:55
PROVIDERS: ADMIT Nurse Practitioner Acute Care; ATTEND Nurse Practitioner Acute Care
PROC: 5A1D70Z Performance of Urinary Filtration, Intermittent, Less than 6 Hours Per Day (ICD-10-PCS; 2022-05-03)
PROC: 0DH63UZ Insertion of Feeding Device into Stomach, Percutaneous Approach (ICD-10-PCS; principal; 2022-05-19)
PROC: 0W993ZZ Drainage of Right Pleural Cavity, Percutaneous Approach (ICD-10-PCS; 2022-05-24)
DX: J69.0 Pneumonitis due to inhalation of food and vomit (principal); J96.01 Acute respiratory failure with hypoxia; G92.8 Other toxic encephalopathy; I13.2 Hypertensive heart and chronic kidney disease with heart failure and with stage 5 chronic kidney disease, or end stage renal disease; E87.5 Hyperkalemia; J15.6 Pneumonia due to other Gram-negative bacteria; N18.6 End stage renal disease; E87.70 Fluid overload, unspecified; I48.0 Paroxysmal atrial fibrillation; K29.70 Gastritis, unspecified, without bleeding; R56.9 Unspecified convulsions; Z87.01 Personal history of pneumonia (recurrent); H54.7 Unspecified visual loss; Z20.822 Contact with and (suspected) exposure to COVID-19; R41.9 Unspecified symptoms and signs involving cognitive functions and awareness
CPT/HCPCS: 31720; 36410; 36415; 36600; 43246; 70450-TC; 70551-TC; 71045-TC; 71250-TC; 80048-TC; 80076-TC; 80202-TC; 81001; 82962-TC; 83605-TC; 83690-TC; 83735-TC; 83880; 84100-TC; 84484-TC; 85025-TC; 85610-TC; 85730-TC; 86704; 86705; 86706; 86707; 86803; 86850-TC; 87040-TC; 87081-TC; 87102-TC; 87340; 87806; 89051-TC; 90935-TC; 92526; 92611-TC; 93307-TC; 94799-TC; 95819-TC; 97112-TC; 97116-TC; 97530-TC; A6253; A6403; C9803; G0378; G0480; J0282; J0360; J1644; J1815; J1953; J2060; J2543; J2704; J3370; J3490; J7030; J7042; J7050; J7060